=== PATIENT | female | born 1940 | race Caucasian/White ===

== ENCOUNTER → 2019-12-01 09:36 | Outpatient (CLI) | payer MEDICARE, OTHER, SELFPAY ==
--- NOTE | ~2019-12-01 | DEXA_ITS ---
Bone Density Report Name: Natasha Salazar Age: 79 Sex: Female Ethnicity: White Date of : 1940 Indication: osteopenia; height loss; postmenopausal Referring Provider: Rocio Mcrae Study: Bone densitometry was performed. Exam Date: December 01, 2019 Accession number: [id number] Bone Density: Region BMD T-score Z-score Classification AP Spine (L1-L4) 1.019 -0.3 2.4 Normal Femoral Neck (Right) 0.630 -2.0 0.3 Osteopenia Total Hip (Right) 0.742 -1.6 0.4 Osteopenia World Health Organization criteria for BMD impression classify patients as: Normal (T-score at or above -1.0), Osteopenia (T-score between -1.0 and -2.5), or Osteoporosis (T-score at or below -2.5). 10-year Fracture Risk(1): Major Osteoporotic Fracture 15% Hip Fracture 4.3% Reported Risk Factors: [place] (), Neck BMD=0.630, BMI=25.2 (1) FRAX(R) Version 3.08. Fracture probability calculated for an untreated patient. Fracture probability may be lower if the patient has received treatment. Previous Exams: Region Exam Age BMD T-score BMD Change BMD Change Date g/cm2 vs Baseline vs Previous AP Spine(L1-L4) 12/01/2019 79 1.019 -0.3 0.021 -0.033* 11/27/2017 77 1.052 0.0 0.053* 0.053* 06/13/2015 74 0.999 -0.4 Total Hip(Right) 12/01/2019 79 0.742 -1.6 -0.033* -0.021 11/27/2017 77 0.763 -1.5 -0.012 -0.012 06/13/2015 74 0.774 -1.4 *Denotes significance at 95% confidence level, LSC for AP Spine = 0.022 g/cm2, LSC for Total Hip = 0.027 g/cm2 Clinical Information Provided by Patient: Patient maximum height was 65.5 Menopause Age: 55 No regular weight bearing exercise Does not regularly consume dairy products Drinks caffeinated beverages Onset of menses at age 13 Number of children 2 Impression: The patient has low bone mass, based on the Right Femoral Neck T-score. The patient has an estimated ten-year risk of hip fracture of 4.3% and an estimated ten-year risk of major fracture of 15%, based on the WHO FRAX algorithm. The BMD for the AP Spine(L1-L4) decreased, changing by -0.033 since the last DXA exam. Discussion: BONE DENSITY IS LOW AT ONE OR MORE SKELETAL SITES. THE PATIENT'S BMD AND CLINICAL RISK FACTORS CONTRIBUTE TO THIS PATIENT'S INCREASED RISK OF FRACTURE. This patient's lowest T-score is low at one or more skeletal sites. It meets the World Health Organization's (WHO) criteria for ?low bone mass? (T-score between -1.0 and -2.5). The patient's 10-year risk
== END ==
PROVIDERS: PCP Family Medicine; Visit Provider Nurse Practitioner
DX: Z78.0 Asymptomatic menopausal state (principal); M85.851 Other specified disorders of bone density and structure, right thigh
CPT/HCPCS: 77080

== ENCOUNTER 2020-08-12 09:05 | Outpatient (CLI) | payer MEDICARE, OTHER, SELFPAY ==
--- NOTE | ~2020-08-12 | CT_ITS ---
EXAMINATION: CT soft tissue neck w con EXAM DATE: 08/12/2020 09:56 INDICATION: R22.0 - Localized swelling, mass and lump, head . TECHNIQUE: Spiral CT of the neck was performed following intravenous injection of 75 mL Omnipaque 350 . Axial, coronal and sagittal images were reviewed. The dose-length product (DLP) for this examinat ion was 326.94 mGy-cm. The exposure was tailored according to patient size (auto mA exposure control ), and iterative reconstruction (ASIR) was used as additional dose reduction technique. There is no prior study for comparison. FINDINGS: There is a right submandibular mass measuring 4.2 x 4.7 x 3.7 cm, contiguous with the subma ndibular gland. Differential diagnosis includes malignant lymphadenopathy and primary submandibular m alignancy. There is a left submandibular lymph node measuring 7 x 11 mm, within normal size limits. T he parotid glands are unremarkable. Supraclavicular region unremarkable. The thyroid gland is unrema rkable. The superior mediastinum is unremarkable. The airway is unremarkable. Parapharyngeal an d pre-glottic fat planes are preserved. The opacified vasculature is patent. The orbits are unrem arkable. Visualized sinuses and mastoid air cells are well aerated. Upper lobe scarring and emphy sema. Advanced cervical spondylosis. IMPRESSION: Right submandibular mass, likely either malignant lymphadenopathy or submandibular gland lesion. ENT consult for histologic correlation. Reviewed, dictated and finalized at location B. INVESTIGATOR IMPRESSION: Right submandibular mass, likely either malignant lymphadenopathy o r submandibular gland lesion. ENT consult for histologic correlation.
[2020-08-12 09:42] LABS: Estimated Glomerular Filt Rate 60
== END 2020-08-12 09:06 | disposition home or self-care (01) ==
LOC: ANHIMG 09:09
PROVIDERS: PCP Family Medicine; Visit Provider Nurse Practitioner Family
DX: R22.0 Localized swelling, mass and lump, head (principal)
CPT/HCPCS: 70491; Q9967

== ENCOUNTER 2020-09-21 13:02 | Outpatient (CLI) | payer MEDICARE, OTHER, SELFPAY ==
--- NOTE | ~2020-09-21 | US_ITS ---
EXAMINATION: US biopsy st neck thorax DATE: 09/21/2020 14:45 INDICATION: Right submandibular mass. TECHNIQUE: The procedure including the risks, benefits, and alternatives was discussed with the patie nt. Risks discussed included bleeding and infection. The patient understood the risks and agreed to p roceed. The skin overlying the right submandibular region was prepped and draped in usual sterile fas hion. Anesthetic was administered with 1% lidocaine subcutaneously. An 18 gauge core biopsy needle was then used to obtain 6 core biopsy specimens under continuous sonographic guidance. The entry site was cleaned and dressed. There were no immediate complications. FINDINGS: Ultrasound images demonstrate the needle in a 5.0 cm hypoechoic right submandibular mass. IMPRESSION: 1. Ultrasound-guided core needle biopsy of a right submandibular mass. Reviewed, dictated and finalized at location A. TAL ASSOCIATE
== END 2020-09-21 13:03 | disposition home or self-care (01) ==
PROVIDERS: PCP Family Medicine; Visit Provider Otolaryngology
DX: R22.0 Localized swelling, mass and lump, head (principal)
CPT/HCPCS: 20206; 76942; 88184; 88185; 88305; 88313; 88342

== ENCOUNTER 2023-04-29 13:45 | Inpatient (IN) | payer MEDICARE, OTHER, SELFPAY ==
[2023-04-29] VITALS (8 sets, daily range): BP systolic 122–157; BP diastolic 69–86; PULSE 80–94; RESP 13–18; TEMP 36.5–36.9; O2SAT 93–100; BMI 19.8
--- NOTE | ~2023-04-29 | XR_ITS ---
EXAMINATION: XR chest 1V portable DATE: 04/29/2023 15:32 INDICATION: Smoker. Preop. TECHNIQUE: A single frontal view of the chest was obtained. COMPARISON: None. FINDINGS: There is a diffuse interstitial pattern in the lungs. No pleural effusion or pneumothorax. The heart size is normal. There are surgical clips in the neck. IMPRESSION: 1. Interstitial pattern in the lungs, consistent with mild pulmonary edema versus chronic lung diseas e. Reviewed, dictated and finalized at location A. IMPRESSION: 1. Interstitial pattern in the lungs, consistent with mild pulmonary edema vers us chronic lung disease.
--- NOTE | ~2023-04-29 | XR_ITS ---
EXAMINATION: XR hip BI 2V w AP pelvis DATE: 04/29/2023 14:50 INDICATION: Right pelvic pain. Fall. TECHNIQUE: An anteroposterior view of the pelvis and 2 views of each hip were obtained. COMPARISON: Pelvis and right hip radiographs 03/30/2020 FINDINGS: There is an intertrochanteric fracture of proximal right femur. The main distal fracture fr agment demonstrates near-anatomic alignment. There is a total left hip arthroplasty in near-anatomic alignment. No periprosthetic lucency to suggest loosening or infection. There is mild right hip osteo arthritis. There are surgical clips in left thigh. IMPRESSION: 1. Intertrochanteric fracture of proximal right femur. 2. Mild right hip osteoarthritis. 3. Total left hip arthroplasty in near-anatomic alignment. Reviewed, dictated and finalized at location A.
--- NOTE | ~2023-04-29 | XR_ITS ---
EXAMINATION: XR surgery orthopedic DATE: 05/01/2023 14:22 INDICATION: Intertrochanteric nailing of a right hip fracture TECHNIQUE: 6 fluoroscopic images of the right hip and proximal femur were obtained during procedure p erformed by Dr. Acosta. Radiologist was not present for the imaging or procedure. The amount of fluo roscopy time used during this procedure was 6.5 minutes. COMPARISON: 04/29/2022 FINDINGS: Again seen is an intratrochanteric fracture of the proximal right femur. Images demonstrate internal fixation with an antegrade intramedullary flo, femoral neck dynamic compression screw and d istal interlocking screw fixation. There is approximately 1 cm proximal migration of the femoral diap hysis relative to the proximal femoral head and neck fragment. Right femoral head remains normally lo cated within the right acetabulum with mild right hip osteoarthritis. IMPRESSION: 1. Fluoroscopy utilized during internal fixation of a comminuted intratrochanteric fracture of the pr oximal right femur. See procedure note for further detail. Reviewed, dictated and finalized at location A. IMPRESSION: 1. Fluoroscopy utilized during internal fixation of a comminuted intratrochante mary kay fracture of the proximal right femur. See procedure note for further detail .
--- NOTE | 2023-04-29 15:05 | ECG_ITS ---
Measurements Intervals [place] Rate: 88 P: 28 TN: 152 QRS: -14 QRSD: 86 T: 37 QT: 349 QTc: 424 Interpretive Statements SINUS RHYTHM ATRIAL COUPLET VOLTAGE CRITERIA FOR LVH NONSPECIFIC T-WAVE ABNORMALITY- INF/LAT LEADS BASELINE ARTIFACT- I, II, III, AVR, AVL, AVF, V4-V6 BORDERLINE ECG NO PREVIOUS ECG AVAILABLE FOR COMPARISON Electronically Signed On 04-29-2023 16:42:38 CDT by John Wu D.O.
--- NOTE | 2023-04-29 15:10 | ED.LOWEXIN ---
HPI - Extremity Injury (Lower) General Chief Complaint: Extremity Injury, Lower Stated Complaint: RIGHT HIP PAIN Time Seen by Provider: 04/29/23 14:55 History of Present Illness HPI Narrative: Pt fell in parking lot and landed on her right hip. Pt complains of right hip pain with movement. Pt denies neck pain or SINGH. Pt did not lose consciousness. Pt has history of dementia. Related Data Home Medications Medication Instructions Recorded Confirmed multivitamin 1 tablet PO DAILY 08/31/19 03/15/23 Allergies Allergy/AdvReac Type Severity Reaction Status Date / Time No Known Allergies Allergy Verified 03/15/23 10:58 Review of Systems Review of Systems: ROS unobtainable: Yes unobtainable due to mental status PMFSH Past Medical History Medical History (Updated 04/29/23 @ 18:22 by Cristian Barkley III, DO) Aftercare following right shoulder joint replacement surgery Carcinoma of right submandibular gland (~2020) Dementia Hypothyroid Memory loss Osteopenia Vitamin D deficiency Wears hearing aid in both ears Surgical History Surgical History History of left hip replacement Dr. Nichols 2015 Social History Social History (Updated 03/15/23 @ 11:02 by Shayy Barroso MA) Social History: Tim Barajas (patient's son) is POA. 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 Gender identity (if verbalized by the patient): Female Exam Const: General: healthy appearing Nutritional Appearance: thin Orientation/consciousness: patient oriented x3 Limitations: altered mental status HENMT: Head: normal to inspection Eyes: Pupils: Equal, round and reactive pupils present EOM: EOMs intact bilaterally Neck: Neck: normal visual inspection Resp: Effort & Inspection: normal respiratory effort Auscultation: clear to auscultation bilaterally Cardio: Rate: regular rate Rhythm: regular rhythm GI: GI Palp: Yes Soft to palpation Auscultation: normal bowel sounds Skin: General skin exam: normal color Rashes: no rashes Neuro: General: patient oriented x3, moves all extremities, no meningeal signs and no focal motor deficits Cranial nerves: Yes Nystagmus not present Speech: Abnormal speech present slurred (baseline) Extrem: Other: RLE shortened and externally rotated Psych: Mental Status: mental status grossly normal Attitude: cooperative Course Vital Signs Vital signs: Vital Signs Temperature 98.4 F 04/29/23 14:22 Pulse Rate 80 04/29/23 14:22 Respiratory Rate 16 04/29/23 14:22 Blood Pressure 125/69 04/29/23 14:22 Pulse Oximetry 97 04/29/23 14:22 Oxygen Delivery Room Air 04/29/23 14:22 Temperature 98.4 F 04/29/23 14:22 Pulse Rate 92 04/29/23 17:24 Respiratory Rate 16 04/29/23 17:24 Blood Pressure 142/86 H 04/29/23 17:24 Pulse Oximetry 100 04/29/23 17:24 Oxygen Delivery Room Air 04/29/23 14:22 MDM - Extremity Injury (Lower) MDM Narrative Medical decision making narrative: Pt fell and landed on right hip appears to be fracture with shortening and external rotation. IT fx noted on x ray. kimberlee get pre op labs. d/w dr serrano agrees to consult, admit to . discussed with Bushra Gonzales agrees to admit Lab Data 04/29/23 15:24 04/29/23 15:24 Labs: Lab Resu
[2023-04-29 15:29] LABS: Hematocrit 34.9 % (37.0-47.0); Hemoglobin 10.7 g/dL (12.0-15.0); Mean Corpuscular HGB Conc 30.7 g/dl (32-36); Mean Corpuscular Hemoglobin 24.3 pg (26-34); Mean Corpuscular Volume 79.1 fl (80-100); Mean Platelet Volume 9.2 fl (7.4-10.4); Platelet Count Result 298 k/mm3 (150-375); Red Blood Count 4.41 M/mm3 (4.2-5.4); Red Cell Distribution Width 16.1 % (11.5-14.5); White Blood Count 19.6 K/mm3 (4.5-10.0)
[2023-04-29 15:38] LABS: Alanine Aminotransferase 26 U/L (6-35); Alkaline Phosphatase 143 U/L (38-126); Anion Gap 6 mmol/L (8-16); Aspartate Amino Transferase 36 U/L (14-36); Bilirubin,Total 0.3 mg/dL (0.2-1.3); Blood Urea Nitrogen 20 mg/dL (7-17); Calcium 9.1 mg/dL (8.4-10.2); Carbon Dioxide 30 mmol/L (22-30); Chloride 97 mmol/L (98-107); Estimated CRCL calculation 38 ml/min; Estimated Glomerular Filt Rate > 60; Glucose 104 mg/dL (65-110); Sodium 133 mmol/L (137-145)
[2023-04-29 15:40] LABS: INR 1.1; Prothrombin Time 14.6 Seconds (11.1-14.7)
[2023-04-29 15:41] LABS: Partial Thromboplastin Time 33.7 SECONDS (22.3-36.8)
[2023-04-29 15:46] LABS: Band Neutrophils Percent 2 % (0-6); Eosinophils Absolute Manual 0.19 K/mm3 (0.02-0.5); Eosinophils Percent Manual 1 % (0-4); Lymphocytes Absolute Manual 0.98 K/mm3 (1.1-4.5); Monocytes Absolute Manual 0.78 K/mm3 (0.1-0.90); Monocytes Percent Manual 4 % (3-9); Neutrophils Absolute Manual 17.64 K/mm3 (1.7-7.2); Neutrophils Percent Manual 88 % (46-73); Total Cells Counted 100
[2023-04-29 15:47] LABS: Anisocytosis 2+ (NORMAL); Hypochromasia 1+ (NORMAL); Platelet Estimate Adequate (Adequate); Schistocytes None Seen (NORMAL)
[2023-04-29] MEDS: MORPHINE SULFATE (*CRX) 2 MG/ML INJ IV PUSH (15:52)
--- NOTE | 2023-04-29 17:29 | PC.NURSE ---
with pt hx of dementia, they refuse to keep SpO2 monitor and bp cuff on. pt denies any pain.
[2023-04-29] MEDS: MORPHINE SULFATE (*CRX) 4 MG/ML INJ 2 MG IV PUSH (19:31)
--- NOTE | 2023-04-29 19:39 | PM.IMHP ---
H&P: HPI History of Present Illness Date/Time: 04/29/23 19:39 Chief Complaint: Fall Narrative: This is an 82-year-old female patient who ambulates on her own. She does have a history of Alzheimer's and lives home alone. Her son and [id number] live a couple doors down and typically take care of her. The daughter in-law was taking her to have her nails done today. The patient fell in the parking lot after getting her nails done. The patient was complaining of right hip pain. She denies hitting her head or having any head or neck pain. Her white count is 19.6. H&H is 10.7 and 34.9. Her sodium slightly low 133. Chloride 97. Chest x-ray was read as interstitial pattern in the lungs consistent with mild pulmonary edema versus chronic lung disease. Hip and pelvis x-ray was read as follows . Intertrochanteric fracture of proximal right femur. 2. Mild right hip osteoarthritis. 3. Total left hip arthroplasty in near-anatomic alignment. The patient was given morphine in the emergency room. Ortho has been consulted. The patient is being admitted to inpatient status on the date of service of 04/29/2023. Review of Systems Review of Systems: All systems reviewed & are unremarkable except as noted in HPI and below Constitutional: Constitutional: Reports as per HPI and Reports no additional constitutional complaints Eyes: Eyes: Reports as per HPI and Reports no additional eye complaints ENT: Reports system reviewed and no additional complaints, except as documented and Reports Normal hearing present Cardiovascular: Cardiovascular: Reports no additional cardiovascular complaints Respiratory: Respiratory: Reports no additional respiratory complaints and Reports no additional respiratory complaints Gastrointestinal: Gastrointestinal: Reports as per HPI and Reports no additional gastrointestinal complaints Musculoskeletal: Musculoskeletal: Reports no additional musculoskeletal complaints Integumentary/Breasts: Skin/Breast: Reports system reviewed and no additional complaints, except as docu and Reports as per HPI Neurologic: Reports system reviewed and no additional complaints, except as documented, Reports as per HPI and Reports Normal hearing present Psychiatric: Psychiatric: Reports no additional psychiatric complaints and Reports as per HPI Endocrine: Endocrine: Reports no additional endocrine complaints Hematologic/Lymphatic: Hematologic/Lymphatic: Reports no additional hematologic/lymphatic complaints Allergic/Immunologic: Allergic/Immunologic: Reports no additional allergic/immunologic complaints PMFSH Past Medical History Medical History Aftercare following right shoulder joint replacement surgery Carcinoma of right submandibular gland (~2020) Dementia Hypothyroid Memory loss Osteopenia Vitamin D deficiency Wears hearing aid in both ears Surgical History Surgical History H/O shoulder surgery History of left hip replacement Dr. Nichols 2016 History of mandibular surgery Family History Family History (Updated 04/29/23 @ 19:43 by Bushra Davis NP) Mother Dementia Social History Social History (Updated 04/29/23 @ 23:05 by Bushra Davis NP) Social History: Tim Barajas (patient's son) is POA. She lives alone but lives very close to Tim Barajas. She solis has 2 sons. She is a former smoker. Code status full code Smoking packs per day: 1 Smoking cigarettes per day: 20.0 Years smoked: 40 Smoking pack-years: 40.00 Smoking status: Former smoker Tobacco type: cigarettes Second hand tobacco smoke exposure: No Smoking end date: 09/30/07 Alcohol intake: former Substance use: never Substance use type: does not use Lack of Transportation: No Lack of Food: Never True Current Housing: I Have Housing Concerned About Future Housing: No Difficulty Paying Gas/Electric Bills
--- NOTE | 2023-04-29 21:20 | ADMGEN ---
This patient, Natasha Salazar, was admitted to 2 Medical Room 260-. Patient/family oriented to hospital policies and general routines including ID bracelet, bed and alarms, visiting hours, pain management, procedures, bathroom and other care routines, personal items, smoking policy, room service/diet, and visiting hours. Information on how to activate the Rapid Response Team has been discussed. Patient/Family are encouraged to report perceived risks to care and to ask questions if they do not understand what they are told or what they should do.
[2023-04-29] MEDS: SODIUM CHLORIDE 0.9% IV 1,000 ML 100 ML IV CONT (23:33)
[2023-04-30 00:58] LABS: Appearance Urine Clear (Clear); Bacteria Urine None Seen /hpf; Bilirubin Urine Negative (Negative); Color Urine Yellow (Yellow); Glucose Urine UA Negative (Negative); Ketones Urine Negative (Negative); Leukocyte Esterase Ur Trace LEU/UL (NEGATIVE); Nitrate Urine Negative (Negative); Non Pathogenic Casts 0-2; Protein Urine Negative (Negative); Specific Grav Ur 1.014 (1.001-1.035); Squamous Epithelial Cell Urine None seen /hpf (Few); Urobilinogen Urine 0.2 mg/dL (<2.0)
[2023-04-30 01:39] LABS: Add Urine Microscopic? YES
[2023-04-30] MEDS: MORPHINE SULFATE (*CRX) 4 MG/ML INJ 2 MG IV PUSH ×3 (04:57→19:13)
[2023-04-30 05:01] VITALS: BP 142/66; PULSE 85; RESP 18; TEMP 36.4; O2SAT 93
[2023-04-30 05:35] LABS: Basophils Absolute Auto 0.1 K/mm3 (0.0-0.1); Basophils Percent Auto 0.5 % (0.2-1.2); Eosinophils Absolute Auto 0.2 K/mm3 (0-0.3); Hematocrit 34.2 % (37.0-47.0); Hemoglobin 10.4 g/dL (12.0-15.0); Immature Granulocyte Absolute 0.09 K/mm3 (0.00-0.031); Immature Granulocyte Percent A 0.6 % (0-0.5); Lymphocytes Absolute Auto 0.71 K/mm3 (0.9-3.2); Lymphocytes Percent Auto 4.9 % (18.3-44.2); Mean Corpuscular HGB Conc 30.4 g/dl (32-36); Mean Platelet Volume 9.6 fl (7.4-10.4); Monocytes Absolute Auto 0.9 K/mm3 (0.1-0.6); Monocytes Percent Auto 6.4 % (2.6-8.5); Neutrophils Absolute Auto 12.5 K/mm3 (1.3-6.7); Neutrophils Percent Auto 86.6 % (45.5-73.1); Platelet Count Result 275 k/mm3 (150-375); Red Blood Count 4.33 M/mm3 (4.2-5.4); Red Cell Distribution Width 15.9 % (11.5-14.5); White Blood Count 14.5 K/mm3 (4.5-10.0)
[2023-04-30 05:44] LABS: Alanine Aminotransferase 24 U/L (6-35); Albumin Level 3.4 g/dL (3.5-5.1); Alkaline Phosphatase 122 U/L (38-126); Anion Gap 4 mmol/L (8-16); Aspartate Amino Transferase 33 U/L (14-36); Bilirubin,Total 0.5 mg/dL (0.2-1.3); Blood Urea Nitrogen 15 mg/dL (7-17); Calcium 8.6 mg/dL (8.4-10.2); Carbon Dioxide 28 mmol/L (22-30); Chloride 101 mmol/L (98-107); Estimated CRCL calculation 38 ml/min; Estimated Glomerular Filt Rate > 60; Glucose 117 mg/dL (65-110); Potassium 4.3 mmol/L (3.4-5.0); Sodium 133 mmol/L (137-145)
[2023-04-30 07:26] LABS: Free T4 Free Thyroxine Reflex 1.07 ng/dL (0.78-2.19)
[2023-04-30 08:15] LABS: Total Triiodothyronine (T3) 0.79 NG/ML (0.97-1.69)
[2023-04-30 08:37] VITALS: RESP 18; O2SAT 93
[2023-04-30] MEDS: DONEPEZIL HCL 5 MG TABLET PO (08:37)
--- NOTE | 2023-04-30 08:51 | PM.IMPN ---
Progress Note: A&P Assessment and Plan (1) Closed hip fracture: Qualifiers: Encounter type: initial encounter Laterality: right Qualified Code(s): S72.001A - Fracture of unspecified part of neck of right femur, initial encounter for closed fracture Code(s): S72.009A - Fracture of unspecified part of neck of unspecified femur, initial encounter for closed fracture Status: Acute Assessment and Plan: Appreciate orthopedic consultation, NPO, await possible OR IVF, pain control Consult PT/OT postoperatively, IS to bedside (2) Dementia: Code(s): F03.90 - Unspecified dementia, unspecified severity, without behavioral disturbance, psychotic disturbance, mood disturbance, and anxiety Status: Acute Assessment and Plan: Continue with donepezil (3) Hypothyroid: Code(s): E03.9 - Hypothyroidism, unspecified Status: Chronic Assessment and Plan: Check TSH Plan DVT prophylaxis with SCDs GI prophylaxis not indicated Code status full code Subjective Date/time seen: 04/30/23 08:51 Interval history: 82-year-old female with history of dementia is presenting with hip pain and found to have a hip fracture. No overnight events noted. No chest pain or shortness of breath. No nausea, vomiting or diarrhea. No fevers or chills. Pain controlled. Spoke with daughter in law at bedside. All questions answered. Review of Systems Review of Systems: 12 point review of systems was assessed and was negative except as noted in the HPI Exam Narrative: General: No acute distress, alert and oriented per baseline HEENT: Atraumatic, normocephalic, mucous membranes moist CV: Regular rate and rhythm, S1, S2 Lungs: Clear to auscultation bilaterally, no rales or crackles noted, no wheezes, good air entry Abdomen: Soft, nontender, nondistended Extremities: Normal to inspection Skin: No rashes noted, no lesions or wounds seen Psych: Euthymic, normal affect Objective Data Vital Signs Vital Signs: Vital Signs - 24 hr 04/29/23 14:22 04/29/23 15:38 04/29/23 15:46 Temperature 98.4 F Pulse Rate 80 Respiratory Rate 16 Blood Pressure 125/69 122/82 Pulse Oximetry 97 98 97 Oxygen Delivery Room Air 04/29/23 16:00 04/29/23 17:24 04/29/23 16:15 Temperature Pulse Rate 84 92 88 Respiratory Rate 13 16 13 Blood Pressure 142/86 H Pulse Oximetry 96 100 96 Oxygen Delivery 04/29/23 16:31 04/29/23 20:39 04/29/23 21:00 Temperature 97.7 F Pulse Rate 94 86 Respiratory Rate 14 18 Blood Pressure 157/75 H Pulse Oximetry 96 93 Oxygen Delivery Room Air 04/30/23 05:01 Temperature 97.6 F Pulse Rate 85 Respiratory Rate 18 Blood Pressure 142/66 H Pulse Oximetry 93 Oxygen Delivery Intake/Output Intake/Output: Intake & Output 04/27/23 04/28/23 04/29/23 04/30/23 23:59 23:59 23:59 23:59 Intake Total 0 Output Total 900 Balance -900 Meds/Results Medications: Active Medications Generic Name Dose Route Start Last Admin Trade Name Freq PRN Reason Stop Dose Admin Donepezil HCl 5 mg 04/30/23 09:00 04/30/23 08:37 Donepezil Hcl 5 Mg Tablet PO 5 mg DAILY [place] Administration Sodium Chloride 1,000 mls @ 100 mls/hr 04/29/23 23:15 04/29/23 23:33 Normal Saline Iv IV CONT 100 mls/hr .Q10H [place] Administration Lorazepam 0.5 mg 04/29/23 19:49 Lorazepam Inj (*Crx) 2 Mg/Ml Vial IV PUSH Q6H PRN Anxiety Morphine Sulfate 2 mg 04/29/23 16:28 04/30/23 04:57 Morphine Sulfate (*Crx) 4 Mg/Ml Inj IV PUSH 2 mg Q4H PRN Administration Pain Rated 7-10 Multivitamins Therapeutic 1 tablet 04/30/23 09:00 04/30/23 08:35 Multivitamins Therapeutic Tab (*Bkc) PO Not Given DAILY [facility] Vitamin D 2,000 units 04/30/23 09:00 04/30/23 08:35 Cholecalciferol 1,000 Units Tablet PO Not Given DAILY [facility] Radiology Results: ITS Impressions Hip/Pelvis X-Ray 04/01
[2023-04-30 09:17] VITALS: O2SAT 93
[2023-04-30] MEDS: SODIUM CHLORIDE 0.9% IV 1,000 ML 100 ML IV CONT ×2 (09:20→22:57)
[2023-04-30 13:54] VITALS: BP 173/83; PULSE 113; RESP 18; TEMP 36.8; O2SAT 97
--- NOTE | 2023-04-30 15:10 | PM.CNOR ---
Assessment and Plan Assessment and plan (1) Closed hip fracture: Qualifiers: Encounter type: initial encounter Laterality: right Qualified Code(s): S72.001A - Fracture of unspecified part of neck of right femur, initial encounter for closed fracture Code(s): S72.009A - Fracture of unspecified part of neck of unspecified femur, initial encounter for closed fracture Status: Acute (2) Intertrochanteric fracture of right femur: Code(s): S72.141A - Displaced intertrochanteric fracture of right femur, initial encounter for closed fracture Status: Acute Assessment and Plan: FARZANEH HAS SUSTAINED A RIGHT INTERTROCHANTERIC HIP FRACTURE AND WILL REQUIRE INSERTION OF FEMORAL ISAAC WITH LAG SCREW. WE DISCUSSED THE PROCEDURE. SHE SEEMS TO UNDERSTAND THAT SHE NEEDS SURGERY AND SHE IS AWARE OF THE RISKS AND COMPLICATIONS. HISTORY, EXAM AND RADIOGRAPHS REVIEWED WITH THE PATIENT. REFERRING PHYSICIAN RECORDS AND IMAGES REVIEWED. CONDITION, NATURE, ETIOLOGY AND COURSE OF NATURAL HISTORY REVIEWED. CONSERVATIVE AND OPERATIVE TREATMENT OPTIONS REVIEWED WELL THE RISKS AND BENEFITS OF EACH. RECOMMEND INSERTION OF PROXIMAL FEMORAL HIP NAIL DISCUSSED NONOPERATIVE AND OPERATIVE TREATMENT OPTIONS WITH THE PATIENT. THE PATIENT'S QUESTIONS WERE ANSWERED. THE PATIENT DESIRES OPERATIVE TREATMENT. DISCUSSED ___INSERTION OF PROXIMAL FEMORAL ISAAC RIGHT HIP . RISKS OF SURGERY INCLUDING BUT NOT LIMITED TO NEUROVASCULAR DAMAGE, WOUND COMPLICATIONS, BLOOD CLOT, PULMONARY EMBOLUS, STROKE, MT, ANESTHETIC RISKS UP TO AND INCLUDING WERE REVIEWED. CONTINUED PAIN AND POSSIBLE DYSFUNCTION WERE EXPLAINED. NO GUARANTEES WERE OFFERED. THE PATIENT UNDERSTANDS AND WISHES TO PROCEED. History of Present Illness HPI Consult date: 04/30/23 Chief complaint: Right Hip Fx Narrative: FARZANEH WAS ADMITTED TO [facility] AFTER FALLING AND SUSTAINING AN INJURY TO THE RIGHT HIP. SHE WAS EVALUATED IN THE ED AND FOUND TO HAVE A RIGHT INTERTROCHANTERIC HIP FRACTURE. SHE WAS ADMITTED TO THE MEDICINE SERVICE FOR PREOPERATIVE CLEARANCE. SHE HAS DEMENTIA AND IS OX1. SHE C/O OF RIGHT HIP PAIN. SHE DENIES ANY OTHER EXTREMITY OR NECK OR BACK PAIN PMFSH Past Medical History Medical History Aftercare following right shoulder joint replacement surgery Carcinoma of right submandibular gland (~2020) Dementia Hypothyroid Memory loss Osteopenia Vitamin D deficiency Wears hearing aid in both ears Surgical History Surgical History H/O shoulder surgery History of left hip replacement Dr. Nichols 2016 History of mandibular surgery Family History Family History Mother Dementia Social History Social History Social History: Tim Barajas (patient's son) is POA. She lives alone but lives very close to Tim Barajas. She solis has 2 sons. She is a former smoker. Code status full code Smoking packs per day: 1 Smoking cigarettes per day: 20.0 Years smoked: 40 Smoking pack-years: 40.00 Smoking status: Former smoker Tobacco type: cigarettes Second hand tobacco smoke exposure: No Smoking end date: 09/30/07 Alcohol intake: former Substance use: never Substance use type: does not use Lack of Transportation: No Lack of Food: Never True Current Housing: I Have Housing Concerned About Future Housing: No Difficulty Paying Gas/Electric Bills: No Difficulty Paying for Meds: No Currently Unemployed: No Education: Master's Degree or Higher Difficulty w/ Childcare or Family Care: No Living arrangements: alone Occupation/Education: retired Additional occupation/education comments: 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
[2023-04-30 19:52] VITALS: BP 149/72; PULSE 111; RESP 18; TEMP 36.9; O2SAT 93
[2023-04-30] MEDS: LORazepam INJ (*CRX) 2 MG/ML VIAL 0.5 MG IV PUSH (20:08)
[2023-04-30 21:33] VITALS: O2SAT 93
[2023-05-01] VITALS (17 sets, daily range): BP systolic 123–159; BP diastolic 52–102; PULSE 76–109; RESP 12–18; TEMP 36–37; O2SAT 92–100
[2023-05-01] MEDS: MORPHINE SULFATE (*CRX) 4 MG/ML INJ 2 MG IV PUSH (03:53)
[2023-05-01 05:39] LABS: Basophils Percent Auto 0.2 % (0.2-1.2); Eosinophils Absolute Auto 0.1 K/mm3 (0-0.3); Eosinophils Percent Auto 0.4 % (0-4.4); Hematocrit 32.6 % (37.0-47.0); Hemoglobin 10.1 g/dL (12.0-15.0); Immature Granulocyte Absolute 0.09 K/mm3 (0.00-0.031); Immature Granulocyte Percent A 0.6 % (0-0.5); Lymphocytes Absolute Auto 0.85 K/mm3 (0.9-3.2); Lymphocytes Percent Auto 5.9 % (18.3-44.2); Mean Corpuscular Hemoglobin 24.3 pg (26-34); Mean Corpuscular Volume 78.6 fl (80-100); Mean Platelet Volume 9.5 fl (7.4-10.4); Monocytes Absolute Auto 1.2 K/mm3 (0.1-0.6); Monocytes Percent Auto 8.1 % (2.6-8.5); Neutrophils Absolute Auto 12.3 K/mm3 (1.3-6.7); Neutrophils Percent Auto 84.8 % (45.5-73.1); Platelet Count Result 266 k/mm3 (150-375); Red Blood Count 4.15 M/mm3 (4.2-5.4); Red Cell Distribution Width 16.1 % (11.5-14.5); White Blood Count 14.5 K/mm3 (4.5-10.0)
[2023-05-01 05:53] LABS: Alanine Aminotransferase 21 U/L (6-35); Alkaline Phosphatase 114 U/L (38-126); Anion Gap 1 mmol/L (8-16); Aspartate Amino Transferase 31 U/L (14-36); Bilirubin,Total 0.4 mg/dL (0.2-1.3); Blood Urea Nitrogen 14 mg/dL (7-17); Carbon Dioxide 25 mmol/L (22-30); Chloride 106 mmol/L (98-107); Estimated CRCL calculation 38 ml/min; Estimated Glomerular Filt Rate > 60; Glucose 106 mg/dL (65-110); Potassium 3.9 mmol/L (3.4-5.0); Sodium 132 mmol/L (137-145)
--- NOTE | 2023-05-01 07:18 | WPDHPUPDATE1 ---
History and Physical Update Update Date/Time: 05/01/23 07:18 History and Physical has been reviewed, including an updated exam of the patient. There are NO changes in the patient's condition. Risks, benefits, and alternatives have been discussed and questions answered. Patient agrees to proceed with procedure.
[2023-05-01] MEDS: CHOLECALCIFEROL 1,000 UNITS TABLET 2000 UNITS PO (09:26)
[2023-05-01] MEDS: MULTIVITAMINS THERAPEUTIC TAB (*BKC) 1 TABLET PO (09:26)
[2023-05-01] MEDS: DONEPEZIL HCL 5 MG TABLET PO (09:26)
--- NOTE | 2023-05-01 11:47 | WPDANESEPPF ---
Anes - Initial Pre Proc Eval Procedure: Operation Date: 05/01/23 13:30 Proposed Procedures p Right Intertrochanteric Nail - Praveen Acosta MD Date/Time: 05/01/23 11:47 Surgeon: Emigdio Harvey MD Pre Op Diagnosis: Right Hip Fx Patient Data Age: 82 Gender: F Height: 1.52 m Weight: 46.6 kg Last Vital Signs Temp 36.6 C 05/01/23 04:50 Pulse 82 05/01/23 04:50 Resp 18 05/01/23 04:50 BP 132/62 05/01/23 04:50 Pulse Ox 96 05/01/23 04:50 O2 Del Method Room Air 05/01/23 08:00 Allergies Allergy/AdvReac Type Severity Reaction Status Date / Time No Known Allergies Allergy Verified 03/15/23 10:58 Home Medications Medication Instructions Recorded Confirmed Type multivitamin 1 tablet PO DAILY 08/31/19 04/29/23 History cholecalciferol (vitamin D3) 50 2,000 unit PO DAILY #90 tabs 10/21/20 04/29/23 Rx mcg (2,000 unit) tablet donepezil 5 mg tablet (Aricept) 5 mg PO DAILY #90 tabs 03/15/23 04/29/23 Rx Laboratory Tests 05/01/23 05:15 WBC 14.5 H K/mm3 (4.5-10.0) RBC 4.15 L M/mm3 (4.2-5.4) Hgb 10.1 L g/dL (12.0-15.0) Hct 32.6 L % (37.0-47.0) MCV 78.6 L fl (80-100) MCH 24.3 L pg (26-34) MCHC 31.0 L g/dl (32-36) RDW 16.1 H % (11.5-14.5) Plt Count 266 k/mm3 (150-375) MPV 9.5 fl (7.4-10.4) Immature Gran % (Auto) 0.6 H % (0-0.5) Neut % (Auto) 84.8 H % (45.5-73.1) Lymph % (Auto) 5.9 L % (18.3-44.2) [place] % (Auto) 8.1 % (2.6-8.5) Eos % (Auto) 0.4 % (0-4.4) Baso % (Auto) 0.2 % (0.2-1.2) Lymph # (Auto) 0.85 L K/mm3 (0.9-3.2) [place] # (Auto) 1.2 H K/mm3 (0.1-0.6) Eos # (Auto) 0.1 K/mm3 (0-0.3) Baso # (Auto) 0.0 K/mm3 (0.0-0.1) Abs Immat Gran (auto) 0.09 H K/mm3 (0.00-0.031) Absolute Neuts (auto) 12.3 H K/mm3 (1.3-6.7) Absolute Nucleated RBC 0.0 K/mm3 (0.0-0.012) Nucleated RBC % 0.0 % (0.0-0.2) Sodium 132 L mmol/L (137-145) Potassium 3.9 mmol/L (3.4-5.0) Chloride 106 mmol/L (98-107) Carbon Dioxide 25 mmol/L (22-30) Anion Gap 1 L mmol/L (8-16) BUN 14 mg/dL (7-17) Creatinine 0.70 mg/dL (0.7-1.0) Estim Creat Clear Calc 38 ml/min Estimated GFR > 60 (59 - ) Glucose 106 mg/dL (65-110) Calcium 8.0 L mg/dL (8.4-10.2) Total Bilirubin 0.4 mg/dL (0.2-1.3) AST 31 U/L (14-36) ALT 21 U/L (6-35) Alkaline Phosphatase 114 U/L (38-126) Total Protein 7.0 g/dL (6.3-8.2) Albumin 3.0 L g/dL (3.5-5.1) Patient hx anesthesia problems: none Family hx anesthesia problems: none Results Review: All pre-operative results and documents have been reviewed as part of the pre-operative evaluation. [facility] Past Medical History Medical History Aftercare following right shoulder joint replacement surgery Carcinoma of right submandibular gland (~2020) Dementia Hypothyroid Memory loss Osteopenia Vitamin D deficiency Wears hearing aid in both ears Surgical History Surgical History H/O shoulder surgery History of left hip replacement Dr. Nichols 2016 History of mandibular surgery Family History Family History Mother Dementia Social History Social History Social History: Tim Barajas (patient's son) is POA. She lives alone but lives very close to Tim Barajas. She solis has 2 sons. She is a former smoker. Code status full code Smoking packs per day: 1 Smoking cigarettes per day: 20.0 Years smoked: 40 Smoking pack-years: 40.00 Smoking status: Former smoker Tobacco type: cigarettes Second hand tobacco smoke exposure: No Smoking end date: 09/30/07 Alcohol intake: former Substance use: never Substance use type: does not use Lack
--- NOTE | 2023-05-01 11:58 | PM.IMPN ---
Progress Note: A&P Assessment and Plan (1) Intertrochanteric fracture of right femur: Code(s): S72.141A - Displaced intertrochanteric fracture of right femur, initial encounter for closed fracture Status: Acute (2) Closed hip fracture: Qualifiers: Encounter type: initial encounter Laterality: right Qualified Code(s): S72.001A - Fracture of unspecified part of neck of right femur, initial encounter for closed fracture Code(s): S72.009A - Fracture of unspecified part of neck of unspecified femur, initial encounter for closed fracture Status: Acute (3) Dementia: Code(s): F03.90 - Unspecified dementia, unspecified severity, without behavioral disturbance, psychotic disturbance, mood disturbance, and anxiety Status: Acute (4) Hypothyroid: Code(s): E03.9 - Hypothyroidism, unspecified Status: Chronic Plan 82-year-old female with history of dementia is presenting with hip pain and found to have a hip fracture. 1)Right Hip Fracture: Appreciate Ortho help Plan for surgical intervention today NPO Pain control 2)Abnormal TSH: High TSH with normal T4 Recheck TSH in 6-8 weeks outpatient 3)H/o Dementia: C/w Donepezil 4)DVT ppx: SCD 5)Code:Full 6)Dispo:pending surgical intervention Time Spent With Patient Time with patient: 25 - 35 minutes Subjective Date/time seen: 05/01/23 11:58 Interval history: no acute events overnight Review of Systems Review of Systems: unable to obtain Exam Narrative: General: No acute distress,sleeping HEENT: Atraumatic, normocephalic, mucous membranes moist CV: Regular rate and rhythm, S1, S2 Lungs: Clear to auscultation bilaterally, no rales or crackles noted, no wheezes, good air entry Abdomen: Soft, nontender, nondistended Extremities: Normal to inspection Skin: No rashes noted, no lesions or wounds seen Psych: unable to obtain Objective Data Vital Signs Vital Signs: Vital Signs - 24 hr 04/30/23 13:54 04/30/23 19:24 04/30/23 19:52 Temperature 98.2 F 98.4 F Pulse Rate 113 H 111 H Respiratory Rate 18 18 Blood Pressure 173/83 H 149/72 H Pulse Oximetry 97 93 Oxygen Delivery Room Air 04/30/23 21:33 05/01/23 04:50 05/01/23 08:00 Temperature 97.9 F Pulse Rate 82 Respiratory Rate 18 Blood Pressure 132/62 Pulse Oximetry 93 96 Oxygen Delivery Room Air Room Air Intake/Output Intake/Output: Intake & Output 04/28/23 04/29/23 04/30/23 05/01/23 23:59 23:59 23:59 23:59 Intake Total 2000 0 Output Total 1550 450 Balance 450 -450 Meds/Results Medications: Active Medications Generic Name Dose Route Start Last Admin Trade Name Freq PRN Reason Stop Dose Admin Acetaminophen 1,000 mg 04/30/23 08:54 Acetaminophen 500 Mg Tablet PO Q6H PRN Mild Pain (1-3) or Fever Donepezil HCl 5 mg 04/30/23 09:00 05/01/23 09:26 Donepezil Hcl 5 Mg Tablet PO 5 mg DAILY [place] Administration Fentanyl Citrate 25 mcg 05/01/23 11:47 Fentanyl Citrate Inj (*Crx) 100 Mcg/2 Ml Vial IV PUSH Q2M PRN Pain Sodium Chloride 1,000 mls @ 100 mls/hr 04/29/23 23:15 04/30/23 22:57 Normal Saline Iv IV CONT 100 mls/hr .Q10H [place] Administration Lactated Ringer's 1,000 mls @ 30 mls/hr 05/01/23 11:50 Lr - Lactated Ringers Iv IV CONT .Q24H [place] Lactated Ringer's 1,000 mls @ 30 mls/hr 05/01/23 11:50 Lr - Lactated Ringers Iv IV CONT .Q24H [place] Lorazepam 0.5 mg 04/29/23 19:49 04/30/23 20:08 Lorazepam Inj (*Crx) 2 Mg/Ml Vial IV PUSH 0.5 mg Q6H PRN Administration Anxiety Morphine Sulfate 2 mg 04/29/23 16:28 05/01/23 03:53 Morphine Sulfate (*Crx) 4 Mg/Ml Inj IV PUSH 2 mg Q4H PRN Administration Pain Rated 7-10 Multivitamins Therapeutic 1 tablet 04/30/23 09:00 05/01/23 09:26 Multivitamins Therapeutic Tab (*Bkc) PO 1 tablet DAILY [place] Administration Oxycodone HCl 5 mg 04/30/23 08:54
[2023-05-01] MEDS: LACTATED RINGERS 1,000 ML 30 ML IV CONT (12:00)
--- NOTE | 2023-05-01 12:12 | SUR.PREOP ---
CHLORHEXIDINE SCRUB SENT TO OR WITH PT.
[2023-05-01] MEDS: ceFAZolin 2 GM/D5W 50 ML 2 GM/50 ML BAG IVPB ×2 (13:15→20:50)
--- NOTE | 2023-05-01 14:35 | W.PM.PROC2 ---
Procedure Note - Detailed Date of Procedure 05/01/23 Pre-op Diagnosis Right Hip Intertrochanteric fracture Post-op Diagnosis Same Procedure Performed INSERTION PROXIMAL FEMORAL RIGHT HIP Surgeon Praveen Acosta MD Anesthesia General Description of Procedure THE PATIENT WAS TAKEN TO THE OPERATING ROOM AND PLACED ON A FRACTURE TABLE AFTER GIVEN GENERAL ANESTHESIA. THE LEFT LOWER EXTREMITY WAS PLACED IN A TRACTION BOOT AND USING SOME TRACTION AND INTERNAL ROTATION THE INNER TROCHANTERIC FRACTURE WAS REDUCED TO ANATOMIC POSITION. NEXT THE LEFT LOWER EXTREMITY WAS PREPPED AND DRAPED IN THE STERILE FASHION. AN INCISION WAS MADE PROXIMAL TO THE TIP OF THE GREATER TROCHANTER AND DISSECTION CONTINUED TILL THE TIP OF THE GREATER TROCHANTER WAS PALPATED. A GUIDE PIN WAS PLACED DOWN THE FEMORAL CANAL AND PAST THE FRACTURE SITE. THIS WAS CHECKED ON FLUOROSCOPY AND FOUND TO BE IN GOOD POSITION. AN INITIAL REAMER WAS USED TO REAM THE FEMORAL CANAL. AN 11 x 200MM GAMMA ISAAC WAS INSERTED TILL THE CORRECT POSITION WAS IDENTIFIED ON XRAY. A GUIDE PIN WAS INSERTED THROUGH THE FEMORAL NECK AT 130 DEG ANGLE TILL IT REACHED THE TIP OF THE SUB CHONDRAL BONE SEEN ON XRAY. AFTER REAMING, LAG SCREW WAS INSERTED MEASURING 90 MM. XRAYS SHOWED IT TO BE IN GOOD POSITION. THE LAG SCREW WAS LOCKED PROXIMALLY WITH A LOCKING SCREW. NEXT A DISTAL LOCKING SCREW WAS PLACED ACROSS THE ISAAC AND WAS IN GOOD POSITION ON XRAY. THE TRACTION WAS RELEASED. THE WOUNDS WERE WASHED. THE DEEP FASCIA WAS REPAIRED WITH 0 VICRYL SUTURE, THE SUB CUTANEOUS LAYER WITH 2-0 VICRYL, AND THE SKIN WITH NIKKI. THE WOUNDS WERE WASHED AND THEN STERILE DRESSING WAS APPLIED. PATIENT WAS EXTUBATED AND SENT TO RECOVERY ROOM. Estimated Blood Loss 75 Urine Output 300 Complications No immediate complications Condition Stable Disposition PACU
[2023-05-01] MEDS: fentaNYL CITRATE INJ (*CRX) 100 MCG/2 ML VIAL 25 MCG IV PUSH ×5 (14:47→15:44)
--- NOTE | 2023-05-01 14:47 | SUR.OPER ---
GREGORY DRAINED FOR 100ML CLEAR YELLOW U/A EBL 75ML
[2023-05-01] MEDS: METOPROLOL TARTRATE INJ 5 MG/5 ML VIAL 2.5 MG IV PUSH (15:04)
--- NOTE | 2023-05-01 15:09 | SUR.PHASEI ---
1500 - MD Pillai notified that pt. had short run of HR 170's. Pt. now back in NSR - HR 90's. BP 151/99. New orders for RN to give 2.5mg metoprolol IVP once.
[2023-05-01] MEDS: SODIUM CHLORIDE 0.9% IV 1,000 ML 125 ML IV CONT (17:07)
[2023-05-01] MEDS: SENNA/DOCUSATE SODIUM TABLET 2 TAB PO (17:10)
[2023-05-01] MEDS: ASPIRIN 325 MG ENTERIC TABLET PO (20:51)
[2023-05-02] MEDS: SODIUM CHLORIDE 0.9% IV 1,000 ML 125 ML IV CONT
[2023-05-02] MEDS: diazePAM (*CRX) 5 MG TABLET PO ×2 (03:48→18:34)
[2023-05-02] MEDS: ceFAZolin 2 GM/D5W 50 ML 2 GM/50 ML BAG IVPB ×2 (05:05→12:28)
[2023-05-02 05:47] LABS: Alanine Aminotransferase 22 U/L (6-35); Albumin Level 2.8 g/dL (3.5-5.1); Alkaline Phosphatase 97 U/L (38-126); Anion Gap 5 mmol/L (8-16); Aspartate Amino Transferase 35 U/L (14-36); Bilirubin,Total 0.3 mg/dL (0.2-1.3); Blood Urea Nitrogen 17 mg/dL (7-17); Calcium 7.7 mg/dL (8.4-10.2); Carbon Dioxide 25 mmol/L (22-30); Chloride 107 mmol/L (98-107); Estimated CRCL calculation 34 ml/min; Estimated Glomerular Filt Rate > 60; Glucose 102 mg/dL (65-110); Potassium 3.7 mmol/L (3.4-5.0); Sodium 137 mmol/L (137-145)
[2023-05-02 05:53] LABS: Basophils Percent Auto 0.3 % (0.2-1.2); Eosinophils Percent Auto 0.1 % (0-4.4); Hematocrit 30.5 % (37.0-47.0); Hemoglobin 9.3 g/dL (12.0-15.0); Immature Granulocyte Percent A 0.7 % (0-0.5); Lymphocytes Absolute Auto 1.16 K/mm3 (0.9-3.2); Lymphocytes Percent Auto 7.7 % (18.3-44.2); Mean Corpuscular HGB Conc 30.5 g/dl (32-36); Mean Corpuscular Hemoglobin 24.4 pg (26-34); Mean Corpuscular Volume 80.1 fl (80-100); Mean Platelet Volume 9.8 fl (7.4-10.4); Monocytes Absolute Auto 1.5 K/mm3 (0.1-0.6); Monocytes Percent Auto 9.9 % (2.6-8.5); Neutrophils Absolute Auto 12.3 K/mm3 (1.3-6.7); Neutrophils Percent Auto 81.3 % (45.5-73.1); Platelet Count Result 283 k/mm3 (150-375); Red Blood Count 3.81 M/mm3 (4.2-5.4); Red Cell Distribution Width 16.7 % (11.5-14.5); White Blood Count 15.1 K/mm3 (4.5-10.0)
[2023-05-02 06:05] VITALS: BP 118/71; PULSE 112; RESP 18; TEMP 36.3; O2SAT 93
[2023-05-02] MEDS: oxyCODONE HCL (*CRX) 5 MG TAB IR PO (06:55)
[2023-05-02] MEDS: CHOLECALCIFEROL 1,000 UNITS TABLET 2000 UNITS PO (08:37)
[2023-05-02] MEDS: SENNA/DOCUSATE SODIUM TABLET 2 TAB PO ×2 (08:38→18:33)
[2023-05-02] MEDS: polyethylene glycoL 3350 17 GM POWD.PACK PO (08:39)
[2023-05-02] MEDS: DONEPEZIL HCL 5 MG TABLET PO (08:39)
[2023-05-02] MEDS: MULTIVITAMINS THERAPEUTIC TAB (*BKC) 1 TABLET PO (08:39)
--- NOTE | 2023-05-02 09:05 | P.PNAN_ITS ---
Anes - Prog Note Post-Op Date/Time: 05/02/23 09:05 Cardiovascular status: normal Respiratory status: normal Airway patency: baseline Mental status: baseline (confused at baseline) Post-Op hydration status: normal Vital Signs: Last Vital Signs Temp 36.3 C L 05/02/23 06:05 Pulse 112 H 05/02/23 06:05 Resp 18 05/02/23 06:05 BP 118/71 05/02/23 06:05 Pulse Ox 93 05/02/23 06:05 O2 Del Method Room Air 05/02/23 07:28 O2 Flow Rate 2 05/01/23 16:10 Pain Score (VAS): 0 I/O: Intake & Output 05/01/23 05/02/23 05/02/23 23:59 07:59 15:59 Intake Total 690 1050 Output Total 225 600 Balance 465 450 Laboratory Tests 05/02/23 05:18 05/02/23 05:18 05/02/23 05:18 WBC 15.1 H RBC 3.81 L Hgb 9.3 L Hct 30.5 L MCV 80.1 MCH 24.4 L MCHC 30.5 L RDW 16.7 H Plt Count 283 MPV 9.8 Immature Gran % (Auto) 0.7 H Neut % (Auto) 81.3 H Lymph % (Auto) 7.7 L [place] % (Auto) 9.9 H Eos % (Auto) 0.1 Baso % (Auto) 0.3 Lymph # (Auto) 1.16 [place] # (Auto) 1.5 H Eos # (Auto) 0.0 Baso # (Auto) 0.0 Abs Immat Gran (auto) 0.10 H Absolute Neuts (auto) 12.3 H Absolute Nucleated RBC 0.0 Nucleated RBC % 0.0 Sodium 137 Potassium 3.7 Chloride 107 Carbon Dioxide 25 Anion Gap 5 L BUN 17 Creatinine 0.80 Estim Creat Clear Calc 34 Estimated GFR > 60 Glucose 102 Calcium 7.7 L Total Bilirubin 0.3 AST 35 ALT 22 Alkaline Phosphatase 97 Total Protein 7.0 Albumin 2.8 L Post-procedural complaints: none Patient Feedback: Patient satisfied with anesthetic care.
--- NOTE | 2023-05-02 09:09 | PM.IMPN ---
Progress Note: A&P Assessment and Plan (1) Closed hip fracture: Qualifiers: Encounter type: initial encounter Laterality: right Qualified Code(s): S72.001A - Fracture of unspecified part of neck of right femur, initial encounter for closed fracture Code(s): S72.009A - Fracture of unspecified part of neck of unspecified femur, initial encounter for closed fracture Status: Acute Assessment and Plan: Appreciate orthopedic consultation, POD#1 ORIF IVF, pain control Consult PT/OT postoperatively, IS to bedside (2) Dementia: Code(s): F03.90 - Unspecified dementia, unspecified severity, without behavioral disturbance, psychotic disturbance, mood disturbance, and anxiety Status: Acute Assessment and Plan: Continue with donepezil (3) Hypothyroid: Code(s): E03.9 - Hypothyroidism, unspecified Status: Chronic Assessment and Plan: Elevated TSH, not on replacement, initiate levothyroxine 25 mcg and recheck in 4-6 weeks outpatient Plan DVT prophylaxis with SCDs GI prophylaxis not indicated Code status full code Subjective Date/time seen: 05/02/23 09:09 Interval history: 82-year-old female with history of dementia is presenting with hip pain and found to have a hip fracture. No overnight events noted. No chest pain or shortness of breath. No nausea, vomiting or diarrhea. No fevers or chills. Pain controlled. Review of Systems Review of Systems: 12 point review of systems was assessed and was negative except as noted in the HPI Exam Narrative: General: No acute distress, alert and oriented per baseline HEENT: Atraumatic, normocephalic, mucous membranes moist CV: Regular rate and rhythm, S1, S2 Lungs: Clear to auscultation bilaterally, no rales or crackles noted, no wheezes, good air entry Abdomen: Soft, nontender, nondistended Extremities: Normal to inspection Skin: No rashes noted, no lesions or wounds seen Psych: Euthymic, normal affect Objective Data Vital Signs Vital Signs: Vital Signs - 24 hr 05/01/23 11:56 05/01/23 15:04 05/01/23 14:38 Temperature 98.6 F 97.3 F L Pulse Rate 86 93 95 Respiratory Rate 18 13 Blood Pressure 128/52 L 143/86 H Pulse Oximetry 100 100 Oxygen Delivery Room Air Simple Face Mask Oxygen Flow Rate 10 05/01/23 14:45 05/01/23 15:00 05/01/23 15:15 Temperature Pulse Rate 102 H 93 80 Respiratory Rate 18 12 14 Blood Pressure 144/87 H 158/89 H 123/82 Pulse Oximetry 100 100 99 Oxygen Delivery Simple Face Mask Simple Face Mask Room Air Oxygen Flow Rate 10 10 05/01/23 15:30 05/01/23 15:45 05/01/23 16:00 Temperature Pulse Rate 83 76 78 Respiratory Rate 14 12 17 Blood Pressure 144/92 H 153/81 H 140/82 Pulse Oximetry 93 98 98 Oxygen Delivery Room Air Nasal Cannula Nasal Cannula Oxygen Flow Rate 2 2 05/01/23 16:10 05/01/23 16:20 05/01/23 16:35 Temperature 96.8 F L 96.8 F L Pulse Rate 82 81 94 Respiratory Rate 14 18 18 Blood Pressure 147/82 H 155/82 H 145/102 H Pulse Oximetry 98 93 92 Oxygen Delivery Nasal Cannula Oxygen Flow Rate 2 05/01/23 17:05 05/01/23 18:05 05/01/23 20:00 Temperature 97.7 F 96.8 F L Pulse Rate 84 86 86 Respiratory Rate 16 16 16 Blood Pressure 139/95 H 159/94 H Pulse Oximetry 98 97 97 Oxygen Delivery Room Air Oxygen Flow Rate 05/01/23 22:05 05/02/23 06:05 05/02/23 07:28 Temperature 97.6 F 97.3 F L Pulse Rate 109 H 112 H Respiratory Rate 16 18 Blood Pressure 123/68 118/71 Pulse Oximetry 92 93 Oxygen Delivery Room Air Oxygen Flow Rate Intake/Output Intake/Output: Intake & Output 04/29/23 04/30/23 05/01/23 05/02/23 23:59 23:59 23:59 23:59 Intake Total 1999 740 1050 Output Total 1550 1275 600 Balance 450 -535 450 Meds/Results Medications: Active Medications Generic Name Dose Route Start Last Admin Trade Name Freq PRN Reason Stop Dose Admin Acetaminophen 1,000 mg 04/30/23
[2023-05-02] MEDS: ASPIRIN 325 MG ENTERIC TABLET PO ×2 (10:12→20:25)
[2023-05-02] MEDS: LEVOTHYROXINE SODIUM 25 MCG TABLET PO (10:12)
[2023-05-02 10:15] VITALS: BP 150/75; PULSE 83; RESP 18; TEMP 36.7; O2SAT 98
[2023-05-02] MEDS: HYDROcodone/acetaminophen (*CRX) 5-325 MG TABLET 2 TAB PO (12:28)
[2023-05-02 14:28] VITALS: BP 124/75; PULSE 91; RESP 16; TEMP 36.7; O2SAT 95
--- NOTE | 2023-05-02 17:19 | PM.PNORT ---
Progress Note: A&P Assessment and Plan (1) Intertrochanteric fracture of right femur: Code(s): S72.141A - Displaced intertrochanteric fracture of right femur, initial encounter for closed fracture Status: Acute Assessment and Plan: 9POD 1 DOING WELL. CONTINUE PT. SNF WHEN STABLE Subjective Subjective Date/Time Seen: 05/02/23 17:19 Interval history: POD 1 DOING WELL. NO CALF PAIN Exam Extrem: Other: VSS AFEBRILE DRESSING DRY [place] INTACT NEG HOMANS SIGN CALF SOFT NON TENDER. Objective Data Vital Signs Vital Signs: Vital Signs - 24 hr 05/01/23 18:05 05/01/23 20:00 05/01/23 22:05 Temperature 36.0 C L 36.4 C Pulse Rate 86 86 109 H Respiratory Rate 16 16 16 Blood Pressure 159/94 H 123/68 Pulse Oximetry 97 97 92 Oxygen Delivery Room Air 05/02/23 06:05 05/02/23 07:28 05/02/23 08:01 Temperature 36.3 C L Pulse Rate 112 H Respiratory Rate 18 Blood Pressure 118/71 Pulse Oximetry 93 Oxygen Delivery Room Air Room Air 05/02/23 10:15 05/02/23 08:00 05/02/23 14:28 Temperature 36.7 C 36.7 C Pulse Rate 83 91 Respiratory Rate 18 16 Blood Pressure 150/75 H 124/75 Pulse Oximetry 98 95 Oxygen Delivery Room Air Intake/Output Intake/Output: Intake & Output 04/29/23 04/30/23 05/01/23 05/02/23 23:59 23:59 23:59 23:59 Intake Total 1999 740 1410 Output Total 550 1275 600 Balance 450 -535 810 Meds/Results Medications: Active Medications Generic Name Dose Route Start Last Admin Trade Name Freq PRN Reason Stop Dose Admin Acetaminophen 1,000 mg 04/30/23 08:54 Acetaminophen 500 Mg Tablet PO Q6H PRN Mild Pain (1-3) or Fever Acetaminophen 650 mg 05/01/23 16:20 Acetaminophen 325 Mg Tablet PO Q6H PRN Mild Pain (1-3) or Fever Hydrocodone Bitart/Acetaminophen 2 tab 05/01/23 16:20 05/02/23 12:28 Hydrocodone/Acetaminophen (*Crx) 5-325 Mg Tablet PO 2 tab Q6H PRN Administration Pain Rated 7-10 Aspirin 325 mg 05/01/23 21:00 05/02/23 10:12 Aspirin 325 Mg Enteric Tablet PO 325 mg Q12HR [place] Administration Diazepam 5 mg 05/01/23 16:20 05/02/23 03:48 Diazepam (*Crx) 5 Mg Tablet PO 5 mg Q8H PRN Administration Muscle Spasm Donepezil HCl 5 mg 04/30/23 09:00 05/02/23 08:39 Donepezil Hcl 5 Mg Tablet PO 5 mg DAILY [place] Administration Sodium Chloride 1,000 mls @ 125 mls/hr 05/01/23 16:20 05/02/23 00:00 Normal Saline Iv IV CONT 125 mls/hr .Q8H [place] Administration Levothyroxine Sodium 25 mcg 05/02/23 09:20 05/02/23 10:12 Levothyroxine Sodium 25 Mcg Tablet PO 25 mcg DAILY@0630 [place] Administration Lorazepam 0.5 mg 04/29/23 19:49 04/30/23 20:08 Lorazepam Inj (*Crx) 2 Mg/Ml Vial IV PUSH 0.5 mg Q6H PRN Administration Anxiety Multivitamins Therapeutic 1 tablet 04/30/23 09:00 05/02/23 08:39 Multivitamins Therapeutic Tab (*Bkc) PO 1 tablet DAILY [place] Administration Naloxone HCl 0.1 mg 05/01/23 16:20 Naloxone Hcl 0.4 Mg/Ml Vial IV PUSH Q2M PRN Opiate Reversal Ondansetron HCl 4 mg 05/01/23 16:20 Ondansetron Inj 4 Mg/2 Ml Vial IV PUSH Q4H PRN Nausea And Vomiting Oxycodone HCl 5 mg 04/30/23 08:54 05/02/23 06:55 Oxycodone Hcl (*Crx) 5 Mg Tab Ir PO 5 mg Q4H PRN Administration Pain Rated 7-10 Polyethylene Glycol 17 gm 05/02/23 09:00 05/02/23 08:39 Polyethylene Glycol 3350 17 Gm Powd.Pack PO 17 gm QAM [place] Administration Senna/Docusate Sodium 2 tab 05/01/23 17:00 05/02/23 08:38 Senna/Docusate Sodium Tablet PO 2 tab BID [place] Administration Vitamin D 2,000 units 04/30/23 09:00 05/02/23 08:37 Cholecalciferol 1,000 Units Tablet PO 2,000 units DAILY [place] Administration Radiology Results: ITS Impressions Hip/Pelvis X-Ray 04/29/23 14:54 IMPRESSION: 1. Intertrochanteric fracture of proximal right femur. 2. Mild right hip osteoarthritis. 3. Total left hip arthroplasty in
--- NOTE | 2023-05-02 18:06 | PC.NURSE ---
Per Dr. Bush, okay to leave IV out
[2023-05-02] MEDS: ACETAMINOPHEN 325 MG TABLET 650 MG PO (18:34)
[2023-05-02 20:39] VITALS: BP 119/74; PULSE 71; RESP 14; TEMP 36.4; O2SAT 98
[2023-05-03] MEDS: LEVOTHYROXINE SODIUM 25 MCG TABLET PO (06:02)
[2023-05-03 06:08] VITALS: BP 118/57; PULSE 80; RESP 16; TEMP 36.4; O2SAT 94
[2023-05-03 07:05] LABS: Basophils Percent Auto 0.3 % (0.2-1.2); Eosinophils Absolute Auto 0.2 K/mm3 (0-0.3); Eosinophils Percent Auto 1.6 % (0-4.4); Hematocrit 26.6 % (37.0-47.0); Hemoglobin 8.3 g/dL (12.0-15.0); Immature Granulocyte Absolute 0.07 K/mm3 (0.00-0.031); Immature Granulocyte Percent A 0.6 % (0-0.5); Lymphocytes Absolute Auto 1.31 K/mm3 (0.9-3.2); Lymphocytes Percent Auto 11.8 % (18.3-44.2); Mean Corpuscular HGB Conc 31.2 g/dl (32-36); Mean Corpuscular Hemoglobin 24.1 pg (26-34); Mean Corpuscular Volume 77.3 fl (80-100); Mean Platelet Volume 9.6 fl (7.4-10.4); Monocytes Percent Auto 8.6 % (2.6-8.5); Neutrophils Absolute Auto 8.6 K/mm3 (1.3-6.7); Neutrophils Percent Auto 77.1 % (45.5-73.1); Platelet Count Result 256 k/mm3 (150-375); Red Blood Count 3.44 M/mm3 (4.2-5.4); Red Cell Distribution Width 16.4 % (11.5-14.5); White Blood Count 11.1 K/mm3 (4.5-10.0)
[2023-05-03 07:34] LABS: Alanine Aminotransferase 17 U/L (6-35); Albumin Level 2.7 g/dL (3.5-5.1); Alkaline Phosphatase 94 U/L (38-126); Anion Gap 2 mmol/L (8-16); Aspartate Amino Transferase 38 U/L (14-36); Bilirubin,Total 0.4 mg/dL (0.2-1.3); Blood Urea Nitrogen 15 mg/dL (7-17); Calcium 7.8 mg/dL (8.4-10.2); Carbon Dioxide 24 mmol/L (22-30); Chloride 105 mmol/L (98-107); Estimated CRCL calculation 38 ml/min; Estimated Glomerular Filt Rate > 60; Glucose 91 mg/dL (65-110); Potassium 3.5 mmol/L (3.4-5.0); Sodium 131 mmol/L (137-145)
[2023-05-03 08:00] VITALS: PULSE 80; RESP 16; O2SAT 94
[2023-05-03] MEDS: CHOLECALCIFEROL 1,000 UNITS TABLET 2000 UNITS PO (08:20)
[2023-05-03] MEDS: ASPIRIN 325 MG ENTERIC TABLET PO ×2 (08:20→20:09)
[2023-05-03] MEDS: MULTIVITAMINS THERAPEUTIC TAB (*BKC) 1 TABLET PO (08:20)
[2023-05-03] MEDS: SENNA/DOCUSATE SODIUM TABLET 2 TAB PO (08:20)
[2023-05-03] MEDS: DONEPEZIL HCL 5 MG TABLET PO (08:20)
--- NOTE | 2023-05-03 10:32 | PM.IMPN ---
Progress Note: A&P Assessment and Plan (1) Intertrochanteric fracture of right femur: Code(s): S72.141A - Displaced intertrochanteric fracture of right femur, initial encounter for closed fracture Status: Acute (2) Closed hip fracture: Qualifiers: Encounter type: initial encounter Laterality: right Qualified Code(s): S72.001A - Fracture of unspecified part of neck of right femur, initial encounter for closed fracture Code(s): S72.009A - Fracture of unspecified part of neck of unspecified femur, initial encounter for closed fracture Status: Acute (3) Dementia: Code(s): F03.90 - Unspecified dementia, unspecified severity, without behavioral disturbance, psychotic disturbance, mood disturbance, and anxiety Status: Acute (4) Hypothyroid: Code(s): E03.9 - Hypothyroidism, unspecified Status: Chronic Plan 82-year-old female with history of dementia is presenting with hip pain and found to have a hip fracture. 1)Right Hip Fracture: Appreciate Ortho help POD#2 ORIF PAin control with tylenol Will back off on narcotics/sedatives as tolerated ASA 325 mg BID for DVT ppx PT/OT 2)Abnormal TSH: High TSH with normal T4 Started on Levothyroxine Will need to have TSH rechecked in 6-8 weeks as outpatient 3)H/o Dementia: C/w Donepezil 4)DVT ppx: ASA as mentioned above 5)Code:Full 6)Dispo:will need rehab Time Spent With Patient Time with patient: 15 - 25 minutes Subjective Date/time seen: 05/03/23 10:32 Interval history: sleepy this morning, unable to have any conversation with patient Review of Systems Review of Systems: ROS unobtainable: Yes unobtainable due to mental status Exam Narrative: General: No acute distress,sleeping HEENT: Atraumatic, normocephalic, mucous membranes moist CV: Regular rate and rhythm, S1, S2 Lungs: Clear to auscultation bilaterally, no rales or crackles noted, no wheezes, good air entry Abdomen: Soft, nontender, nondistended Extremities: Normal to inspection Skin: No rashes noted, no lesions or wounds seen Psych: unable to obtain Objective Data Vital Signs Vital Signs: Vital Signs - 24 hr 05/02/23 14:28 05/02/23 20:39 05/03/23 06:08 Temperature 98.1 F 97.6 F 97.6 F Pulse Rate 91 71 80 Respiratory Rate 16 14 16 Blood Pressure 124/75 119/74 118/57 L Pulse Oximetry 95 98 94 Intake/Output Intake/Output: Intake & Output 04/30/23 05/01/23 05/02/23 05/03/23 23:59 23:59 23:59 23:59 Intake Total 1999 740 1660 300 Output Total 1550 1275 600 650 Balance 450 -535 1060 -350 Meds/Results Medications: Active Medications Generic Name Dose Route Start Last Admin Trade Name Freq PRN Reason Stop Dose Admin Acetaminophen 650 mg 05/01/23 16:20 05/02/23 18:34 Acetaminophen 325 Mg Tablet PO 650 mg Q6H PRN Administration Mild Pain (1-3) or Fever Hydrocodone Bitart/Acetaminophen 2 tab 05/01/23 16:20 05/02/23 12:28 Hydrocodone/Acetaminophen (*Crx) 5-325 Mg Tablet PO 2 tab Q6H PRN Administration Pain Rated 7-10 Aspirin 325 mg 05/01/23 21:00 05/03/23 08:20 Aspirin 325 Mg Enteric Tablet PO 325 mg Q12HR [place] Administration Diazepam 5 mg 05/01/23 16:20 05/02/23 18:34 Diazepam (*Crx) 5 Mg Tablet PO 5 mg Q8H PRN Administration Muscle Spasm Donepezil HCl 5 mg 04/30/23 09:00 05/03/23 08:20 Donepezil Hcl 5 Mg Tablet PO 5 mg DAILY [place] Administration Levothyroxine Sodium 25 mcg 05/02/23 09:20 05/03/23 06:02 Levothyroxine Sodium 25 Mcg Tablet PO 25 mcg DAILY@0630 [place] Administration Lorazepam 0.5 mg 04/29/23 19:49 04/30/23 20:08 Lorazepam Inj (*Crx) 2 Mg/Ml Vial IV PUSH 0.5 mg Q6H PRN Administration Anxiety Multivitamins Therapeutic 1 tablet 04/30/23 09:00 05/03/23 08:20 Multivitamins Therapeutic Tab (*Bkc) PO 1 tablet DAILY [place] Administration Naloxone HCl 0.1 mg 05/01/23 16:20 Naloxone Hcl 0.4 Mg/
--- NOTE | 2023-05-03 12:54 | PM.PNORT ---
Progress Note: A&P Assessment and Plan (1) Intertrochanteric fracture of right femur: Code(s): S72.141A - Displaced intertrochanteric fracture of right femur, initial encounter for closed fracture Status: Acute Assessment and Plan: POD 2 DOING WELL. SHE WILL F/U WITH ORTHO IN 6 WEEKS. PLEASE CALL FOR ANY QUESTIONS. Subjective Subjective Date/Time Seen: 05/03/23 12:54 Interval history: pod 2 DOING WELL. NO CALF PAIN Exam Extrem: Other: VSS AFEBRILE DRESSING DRY [place] INTACT NEG HOMANS SIGN THIGH AND CALF SOFT Objective Data Vital Signs Vital Signs: Vital Signs - 24 hr 05/02/23 14:28 05/02/23 20:39 05/03/23 06:08 Temperature 36.7 C 36.4 C 36.4 C Pulse Rate 91 71 80 Respiratory Rate 16 14 16 Blood Pressure 124/75 119/74 118/57 L Pulse Oximetry 95 98 94 Oxygen Delivery 05/03/23 08:00 Temperature Pulse Rate 80 Respiratory Rate 16 Blood Pressure Pulse Oximetry 94 Oxygen Delivery Room Air Intake/Output Intake/Output: Intake & Output 04/30/23 05/01/23 05/02/23 05/03/23 23:59 23:59 23:59 23:59 Intake Total 1999 740 1660 420 Output Total 1550 1275 600 650 Balance 450 -535 1060 -230 Meds/Results Medications: Active Medications Generic Name Dose Route Start Last Admin Trade Name Freq PRN Reason Stop Dose Admin Acetaminophen 650 mg 05/01/23 16:20 05/02/23 18:34 Acetaminophen 325 Mg Tablet PO 650 mg Q6H PRN Administration Mild Pain (1-3) or Fever Aspirin 325 mg 05/01/23 21:00 05/03/23 08:20 Aspirin 325 Mg Enteric Tablet PO 325 mg Q12HR [place] Administration Diazepam 5 mg 05/01/23 16:20 05/02/23 18:34 Diazepam (*Crx) 5 Mg Tablet PO 5 mg Q8H PRN Administration Muscle Spasm Donepezil HCl 5 mg 04/30/23 09:00 05/03/23 08:20 Donepezil Hcl 5 Mg Tablet PO 5 mg DAILY [place] Administration Levothyroxine Sodium 25 mcg 05/02/23 09:20 05/03/23 06:02 Levothyroxine Sodium 25 Mcg Tablet PO 25 mcg DAILY@0630 [place] Administration Multivitamins Therapeutic 1 tablet 04/30/23 09:00 05/03/23 08:20 Multivitamins Therapeutic Tab (*Bkc) PO 1 tablet DAILY [place] Administration Naloxone HCl 0.1 mg 05/01/23 16:20 Naloxone Hcl 0.4 Mg/Ml Vial IV PUSH Q2M PRN Opiate Reversal Ondansetron HCl 4 mg 05/01/23 16:20 Ondansetron Inj 4 Mg/2 Ml Vial IV PUSH Q4H PRN Nausea And Vomiting Oxycodone HCl 5 mg 04/30/23 08:54 05/02/23 06:55 Oxycodone Hcl (*Crx) 5 Mg Tab Ir PO 5 mg Q4H PRN Administration Pain Rated 7-10 Polyethylene Glycol 17 gm 05/02/23 09:00 05/02/23 08:39 Polyethylene Glycol 3350 17 Gm Powd.Pack PO 17 gm QAM [place] Administration Senna/Docusate Sodium 2 tab 05/01/23 17:00 05/03/23 08:20 Senna/Docusate Sodium Tablet PO 2 tab BID [place] Administration Vitamin D 2,000 units 04/30/23 09:00 05/03/23 08:20 Cholecalciferol 1,000 Units Tablet PO 2,000 units DAILY [place] Administration Radiology Results: ITS Impressions Hip/Pelvis X-Ray 04/29/23 14:54 IMPRESSION: 1. Intertrochanteric fracture of proximal right femur. 2. Mild right hip osteoarthritis. 3. Total left hip arthroplasty in near-anatomic alignment. Chest X-Ray 04/29/23 15:37 IMPRESSION: 1. Interstitial pattern in the lungs, consistent with mild pulmonary edema versus chronic lung disease. Intraoperative X-Ray 05/01/23 14:46 IMPRESSION: 1. Fluoroscopy utilized during internal fixation of a comminuted intratrochanteric fracture of the proximal right femur. See procedure note for further detail. Labs Labs: Laboratory Results - last 24 hr 05/03/23 06:40 WBC 11.1 H RBC 3.44 L Hgb 8.3 L Hct 26.6 L MCV 77.3 L MCH 24.1 L MCHC 31.2 L RDW 16.4 H Plt Count 256 MPV 9.6 Immature Gran % (Auto) 0.6 H Neut % (Auto) 77.1 H Lymph % (Auto) 11.8 L [place] % (Auto) 8.6 H Eos % (Auto) 1.6 Baso % (Auto) 0.3 Lymph # (Auto) 1.31 [place] # (Auto) 1.0 H Eo
[2023-05-03 14:40] VITALS: BP 149/77; PULSE 99; RESP 16; TEMP 36.5; O2SAT 96
[2023-05-03 19:51] VITALS: BP 135/70; PULSE 100; RESP 16; TEMP 36.6; O2SAT 95
[2023-05-03 20:00] VITALS: PULSE 88; RESP 17; O2SAT 95
[2023-05-03] MEDS: oxyCODONE HCL (*CRX) 5 MG TAB IR PO (20:09)
[2023-05-03] MEDS: diazePAM (*CRX) 5 MG TABLET PO (20:09)
[2023-05-04] MEDS: LEVOTHYROXINE SODIUM 25 MCG TABLET PO (05:01)
[2023-05-04 05:13] VITALS: BP 141/60; PULSE 85; RESP 16; TEMP 36.4; O2SAT 96
[2023-05-04 06:33] LABS: Basophils Percent Auto 0.3 % (0.2-1.2); Eosinophils Absolute Auto 0.1 K/mm3 (0-0.3); Eosinophils Percent Auto 0.5 % (0-4.4); Hematocrit 28.1 % (37.0-47.0); Hemoglobin 8.6 g/dL (12.0-15.0); Immature Granulocyte Absolute 0.07 K/mm3 (0.00-0.031); Immature Granulocyte Percent A 0.5 % (0-0.5); Lymphocytes Absolute Auto 1.08 K/mm3 (0.9-3.2); Lymphocytes Percent Auto 8.4 % (18.3-44.2); Mean Corpuscular HGB Conc 30.6 g/dl (32-36); Mean Corpuscular Volume 78.3 fl (80-100); Mean Platelet Volume 9.6 fl (7.4-10.4); Monocytes Percent Auto 7.8 % (2.6-8.5); Neutrophils Absolute Auto 10.7 K/mm3 (1.3-6.7); Neutrophils Percent Auto 82.5 % (45.5-73.1); Platelet Count Result 297 k/mm3 (150-375); Red Blood Count 3.59 M/mm3 (4.2-5.4); Red Cell Distribution Width 16.6 % (11.5-14.5); White Blood Count 12.9 K/mm3 (4.5-10.0)
[2023-05-04 06:45] LABS: Alanine Aminotransferase 17 U/L (6-35); Albumin Level 2.7 g/dL (3.5-5.1); Alkaline Phosphatase 90 U/L (38-126); Anion Gap 5 mmol/L (8-16); Aspartate Amino Transferase 34 U/L (14-36); Bilirubin,Total 0.6 mg/dL (0.2-1.3); Blood Urea Nitrogen 13 mg/dL (7-17); Calcium 7.6 mg/dL (8.4-10.2); Carbon Dioxide 23 mmol/L (22-30); Chloride 102 mmol/L (98-107); Estimated CRCL calculation 52 ml/min; Estimated Glomerular Filt Rate > 60; Glucose 100 mg/dL (65-110); Potassium 3.1 mmol/L (3.4-5.0); Sodium 130 mmol/L (137-145)
[2023-05-04] MEDS: ASPIRIN 325 MG ENTERIC TABLET PO ×2 (10:27→20:20)
[2023-05-04] MEDS: CHOLECALCIFEROL 1,000 UNITS TABLET 2000 UNITS PO (10:27)
[2023-05-04] MEDS: polyethylene glycoL 3350 17 GM POWD.PACK PO (10:27)
[2023-05-04] MEDS: POTASSIUM CHLORIDE 20 MEQ ER TABLET 40 MEQ PO (10:28)
[2023-05-04] MEDS: DONEPEZIL HCL 5 MG TABLET PO (10:28)
[2023-05-04] MEDS: MULTIVITAMINS THERAPEUTIC TAB (*BKC) 1 TABLET PO (10:28)
[2023-05-04] MEDS: SENNA/DOCUSATE SODIUM TABLET 2 TAB PO ×2 (10:28→18:36)
[2023-05-04] MEDS: ACETAMINOPHEN 325 MG TABLET 650 MG PO (10:30)
--- NOTE | 2023-05-04 13:26 | PM.IMPN ---
Progress Note: A&P Assessment and Plan (1) Intertrochanteric fracture of right femur: Code(s): S72.141A - Displaced intertrochanteric fracture of right femur, initial encounter for closed fracture Status: Acute Assessment and Plan: Patient presents with hip pain after a fall and found to have IT proximal right femur fracture. Ortho consulted and underwent surgical repair on 05/01/23. Pain control with Tylenol. ASA 325 mg BID for DVT ppx PT/OT Awaiting placement (2) Anemia: Code(s): D64.9 - Anemia, unspecified Status: Acute Assessment and Plan: Hgb normal last year. Hgb 10.7 on admission probably related to femur fracture. Hgb has drifted down to 8 range and stable. EBL 75mL. Follow. (3) Dementia: Code(s): F03.90 - Unspecified dementia, unspecified severity, without behavioral disturbance, psychotic disturbance, mood disturbance, and anxiety Status: Acute Assessment and Plan: Stable. Continue Donepezil (4) Hypothyroid: Code(s): E03.9 - Hypothyroidism, unspecified Status: Chronic Assessment and Plan: She has listed hypothyroid on her PMH but was not on levothyroxine. High TSH at 6.4 with normal FT4. TSH in the past have been normal. Was started on Levothyroxine but felt not necessary since she has either subclinical hypothyroid or transient elevation of TSH. Will stop levothyroxine and have TSH rechecked in 6-8 weeks as outpatient (5) Hyponatremia: Code(s): E87.1 - Hypo-osmolality and hyponatremia Status: Acute Assessment and Plan: Na low on admission at 133. Na low but stable since admission. 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 Check urine Na. Follow Plan WBC elevated - UA negative. CXR showing ILD vs edema. Follow DVT ppx: ASA, SCDs Code:Full Dispo:will need rehab Subjective Date/time seen: 05/04/23 13:26 Interval history: 82yo female with dementia and hypothyroidism here for hip pain after a fall and found to have femur fracture. Assuming care. Chart reviewed. Patient is alert but confused and unable to provide hx. Rn states no issues overnight. Patient denies hip pain. Review of Systems Review of Systems: ROS unobtainable: Yes unobtainable due to mental status Exam Narrative: AF 97.6 141/60 85 16 96% ra Gen - NARD lying in recumbent chair Chest - CTA bilaterally, nml RR CV - RRR S1/S2 Abd - Soft, NT/ND, Positive BS Back - kyphosis Ext - No pedal edema. right hip dressing is clean/dry/intact Neuro - Alert but confused Psych - pleasant and cooperative Skin - Warm and dry Objective Data Vital Signs Vital Signs: Vital Signs - 24 hr 05/03/23 14:40 05/03/23 19:51 05/03/23 20:00 Temperature 97.7 F 97.8 F Pulse Rate 99 100 88 Respiratory Rate 16 16 17 Blood Pressure 149/77 H 135/70 Pulse Oximetry 96 95 95 Oxygen Delivery Room Air 05/04/23 05:13 Temperature 97.6 F Pulse Rate 85 Respiratory Rate 16 Blood Pressure 141/60 H Pulse Oximetry 96 Oxygen Delivery Intake/Output Intake/Output: Intake & Output 05/01/23 05/02/23 05/03/23 05/04/23 23:59 23:59 23:59 23:59 Intake Total 740 1660 820 520 Output Total 2974 131 5131 200 Balance -535 1060 -605 320 Meds/Results Medications: Active Medications Generic Name Dose Route Start Last Admin Trade Name Freq PRN Reason Stop Dose Admin Acetaminophen 650 mg 05/01/23 16:20 05/04/23 10:30 Acetaminophen 325 Mg Tablet PO 650 mg Q6H PRN Administration Mild Pain (1-3) or Fever Aspirin 325 mg 05/01/23 21:00 05/04/23 10:27 Aspirin 325 Mg Enteric Tablet PO 325 mg Q12HR [place] Administration Diazepam 5 mg 05/01/23 16:20 05/03/23 20:09 Diazepam (*Crx) 5 Mg Tablet PO 5 mg Q8H PRN Administration Muscle Spasm Donepezil HCl 5 mg 04/30/23 09:00 05/04/23 10:28 Donepezil Hcl 5 Mg Tablet PO 5 mg DAILY [place] Administration Levothyroxine Sodium 25 mcg 05/02/23 09:20 05/04/23
[2023-05-04 14:00] VITALS: BP 138/62; PULSE 70; RESP 16; TEMP 36.4; O2SAT 98
[2023-05-04 20:00] VITALS: PULSE 76; RESP 16; O2SAT 98
--- NOTE | 2023-05-04 20:02 | PC.NURSE ---
1400 05/04/23 Pt attempting to get up on her know without help. Pt A&O x1. Educated that she needs to call to get up and she can't walk on her own because she broke her hip. Called Dr. Salvador for further orders. No new orders at the time.
[2023-05-04 20:19] VITALS: BP 129/72; PULSE 84; RESP 16; TEMP 36.5; O2SAT 99
[2023-05-04] MEDS: diazePAM (*CRX) 5 MG TABLET PO (20:20)
[2023-05-04] MEDS: HYDROcodone/acetaminophen (*CRX) 5-325 MG TABLET 1 TAB PO (20:20)
[2023-05-05 05:51] LABS: Basophils Absolute Auto 0.1 K/mm3 (0.0-0.1); Basophils Percent Auto 0.4 % (0.2-1.2); Eosinophils Absolute Auto 0.2 K/mm3 (0-0.3); Eosinophils Percent Auto 1.4 % (0-4.4); Hemoglobin 8.7 g/dL (12.0-15.0); Immature Granulocyte Absolute 0.07 K/mm3 (0.00-0.031); Immature Granulocyte Percent A 0.6 % (0-0.5); Lymphocytes Absolute Auto 0.97 K/mm3 (0.9-3.2); Lymphocytes Percent Auto 8.6 % (18.3-44.2); Mean Corpuscular HGB Conc 31.1 g/dl (32-36); Mean Corpuscular Hemoglobin 24.1 pg (26-34); Mean Corpuscular Volume 77.6 fl (80-100); Mean Platelet Volume 9.4 fl (7.4-10.4); Monocytes Absolute Auto 0.8 K/mm3 (0.1-0.6); Monocytes Percent Auto 7.1 % (2.6-8.5); Neutrophils Absolute Auto 9.3 K/mm3 (1.3-6.7); Neutrophils Percent Auto 81.9 % (45.5-73.1); Platelet Count Result 324 k/mm3 (150-375); Red Blood Count 3.61 M/mm3 (4.2-5.4); Red Cell Distribution Width 16.6 % (11.5-14.5); White Blood Count 11.3 K/mm3 (4.5-10.0)
[2023-05-05 06:12] LABS: Iron 18 ug/dL (37-170)
[2023-05-05 06:16] LABS: Alanine Aminotransferase 19 U/L (6-35); Albumin Level 2.9 g/dL (3.5-5.1); Alkaline Phosphatase 102 U/L (38-126); Anion Gap 6 mmol/L (8-16); Aspartate Amino Transferase 36 U/L (14-36); Bilirubin,Total 0.7 mg/dL (0.2-1.3); Blood Urea Nitrogen 12 mg/dL (7-17); Calcium 7.9 mg/dL (8.4-10.2); Carbon Dioxide 25 mmol/L (22-30); Chloride 103 mmol/L (98-107); Estimated CRCL calculation 44 ml/min; Estimated Glomerular Filt Rate > 60; Glucose 99 mg/dL (65-110); Magnesium 1.9 mg/dL (1.6-2.3); Potassium 3.7 mmol/L (3.4-5.0); Sodium 134 mmol/L (137-145)
[2023-05-05 06:22] LABS: Percent Iron Saturation 6 % (20-50)
[2023-05-05 06:36] VITALS: BP 141/77; PULSE 100; RESP 16; TEMP 36.6; O2SAT 98
[2023-05-05] MEDS: HYDROcodone/acetaminophen (*CRX) 5-325 MG TABLET 1 TAB PO ×2 (06:37→20:24)
[2023-05-05 07:33] LABS: Folic Acid > 20.0 ng/mL (2.76->20)
[2023-05-05] MEDS: polyethylene glycoL 3350 17 GM POWD.PACK PO (08:58)
[2023-05-05] MEDS: CHOLECALCIFEROL 1,000 UNITS TABLET 2000 UNITS PO (08:58)
[2023-05-05] MEDS: MULTIVITAMINS THERAPEUTIC TAB (*BKC) 1 TABLET PO (08:58)
[2023-05-05] MEDS: DONEPEZIL HCL 5 MG TABLET PO (08:58)
[2023-05-05] MEDS: ASPIRIN 325 MG ENTERIC TABLET PO ×2 (08:58→20:24)
[2023-05-05] MEDS: SENNA/DOCUSATE SODIUM TABLET 2 TAB PO ×2 (08:59→17:09)
--- NOTE | 2023-05-05 13:10 | PM.IMPN ---
Progress Note: A&P Assessment and Plan (1) Intertrochanteric fracture of right femur: Code(s): S72.141A - Displaced intertrochanteric fracture of right femur, initial encounter for closed fracture Status: Acute Assessment and Plan: Patient presents with hip pain after a fall and found to have IT proximal right femur fracture. Ortho consulted and underwent surgical repair on 05/01/23. Pain control with Tylenol. ASA 325 mg BID for DVT ppx PT/OT Awaiting placement (2) Anemia: Code(s): D64.9 - Anemia, unspecified Status: Acute Assessment and Plan: Hgb normal last year. Hgb 10.7 on admission probably related to femur fracture. Hgb has drifted down to 8 range and stable. EBL 75mL. Follow. (3) Dementia: Code(s): F03.90 - Unspecified dementia, unspecified severity, without behavioral disturbance, psychotic disturbance, mood disturbance, and anxiety Status: Acute Assessment and Plan: Stable. Continue Donepezil (4) Hypothyroid: Code(s): E03.9 - Hypothyroidism, unspecified Status: Chronic Assessment and Plan: She has listed hypothyroid on her PMH but was not on levothyroxine. High TSH at 6.4 with normal FT4. TSH in the past have been normal. Was started on Levothyroxine but felt not necessary since she has either subclinical hypothyroid or transient elevation of TSH. Will stop levothyroxine and have TSH rechecked in 6-8 weeks as outpatient (5) Hyponatremia: Code(s): E87.1 - Hypo-osmolality and hyponatremia Status: Acute Assessment and Plan: Na low on admission at 133. Na low but stable since admission. 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 Check urine Na. Follow Plan WBC elevated - UA negative. CXR showing ILD vs edema. Follow DVT ppx: ASA, SCDs Code:Full Dispo:will need rehab Subjective Date/time seen: 05/05/23 13:10 Interval history: No complaints Exam Narrative: AF 97.6 141/60 85 16 96% ra Gen - NARD lying in recumbent chair Chest - CTA bilaterally, nml RR CV - RRR S1/S2 Abd - Soft, NT/ND, Positive BS Back - kyphosis Ext - No pedal edema. right hip dressing is clean/dry/intact Neuro - Alert but confused Psych - pleasant and cooperative Skin - Warm and dry Objective Data Vital Signs Vital Signs: Vital Signs - 24 hr 05/04/23 14:00 05/04/23 20:19 05/04/23 20:00 Temperature 97.6 F 97.7 F Pulse Rate 70 84 76 Respiratory Rate 16 16 16 Blood Pressure 138/62 129/72 Pulse Oximetry 98 99 98 Oxygen Delivery Room Air 05/05/23 06:36 05/05/23 09:00 Temperature 97.8 F Pulse Rate 100 Respiratory Rate 16 Blood Pressure 141/77 H Pulse Oximetry 98 Oxygen Delivery Room Air Intake/Output Intake/Output: Intake & Output 05/02/23 05/03/23 05/04/23 05/05/23 23:59 23:59 23:59 23:59 Intake Total 2851 179 7926 450 Output Total 600 1425 200 Balance 1060 -605 1320 450 Meds/Results Medications: Active Medications Generic Name Dose Route Start Last Admin Trade Name Freq PRN Reason Stop Dose Admin Acetaminophen 650 mg 05/04/23 13:48 Acetaminophen 325 Mg Tablet PO Q6H PRN Mild Pain (1-5) Or Fever Hydrocodone Bitart/Acetaminophen 1 tab 05/04/23 13:41 05/05/23 06:37 Hydrocodone/Acetaminophen (*Crx) 5-325 Mg Tablet PO 1 tab Q6H PRN Administration Pain Rated 6 or Greater Aspirin 325 mg 05/01/23 21:00 05/05/23 08:58 Aspirin 325 Mg Enteric Tablet PO 325 mg Q12HR [place] Administration Diazepam 5 mg 05/01/23 16:20 05/04/23 20:20 Diazepam (*Crx) 5 Mg Tablet PO 5 mg Q8H PRN Administration Muscle Spasm Donepezil HCl 5 mg 04/30/23 09:00 05/05/23 08:58 Donepezil Hcl 5 Mg Tablet PO 5 mg DAILY [place] Administration Multivitamins Therapeutic 1 tablet 04/30/23 09:00 05/05/23 08:58 Multivitamins Therapeutic Tab (*Bkc) PO 1 tablet DAILY [place] Administration Naloxone HCl 0.1 mg 05/01/23 16:20 Naloxone Hcl 0.4 Mg/M
[2023-05-05 14:00] VITALS: BP 138/68; PULSE 90; RESP 16; TEMP 36.4; O2SAT 98
[2023-05-05 17:17] LABS: Creatinine Urine 83.9 mg/dL
[2023-05-05 17:36] LABS: Sodium Urine Random 22 meq/L
[2023-05-05 20:00] VITALS: PULSE 90; RESP 16; O2SAT 98
[2023-05-05] MEDS: diazePAM (*CRX) 5 MG TABLET PO (20:24)
[2023-05-05 22:00] VITALS: BP 150/74; PULSE 101; RESP 18; TEMP 36.4; O2SAT 96
[2023-05-06 05:43] LABS: Basophils Absolute Auto 0.1 K/mm3 (0.0-0.1); Basophils Percent Auto 0.5 % (0.2-1.2); Eosinophils Absolute Auto 0.3 K/mm3 (0-0.3); Eosinophils Percent Auto 2.5 % (0-4.4); Hematocrit 28.9 % (37.0-47.0); Hemoglobin 8.9 g/dL (12.0-15.0); Immature Granulocyte Absolute 0.07 K/mm3 (0.00-0.031); Immature Granulocyte Percent A 0.6 % (0-0.5); Lymphocytes Absolute Auto 1.47 K/mm3 (0.9-3.2); Lymphocytes Percent Auto 12.9 % (18.3-44.2); Mean Corpuscular HGB Conc 30.8 g/dl (32-36); Mean Corpuscular Hemoglobin 24.5 pg (26-34); Mean Corpuscular Volume 79.6 fl (80-100); Mean Platelet Volume 9.4 fl (7.4-10.4); Monocytes Absolute Auto 0.8 K/mm3 (0.1-0.6); Monocytes Percent Auto 6.9 % (2.6-8.5); Neutrophils Absolute Auto 8.7 K/mm3 (1.3-6.7); Neutrophils Percent Auto 76.6 % (45.5-73.1); Platelet Count Result 364 k/mm3 (150-375); Red Blood Count 3.63 M/mm3 (4.2-5.4); White Blood Count 11.4 K/mm3 (4.5-10.0)
[2023-05-06 05:57] LABS: Alanine Aminotransferase 19 U/L (6-35); Alkaline Phosphatase 112 U/L (38-126); Anion Gap 3 mmol/L (8-16); Aspartate Amino Transferase 34 U/L (14-36); Bilirubin,Total 0.7 mg/dL (0.2-1.3); Blood Urea Nitrogen 12 mg/dL (7-17); Calcium 8.2 mg/dL (8.4-10.2); Carbon Dioxide 31 mmol/L (22-30); Chloride 102 mmol/L (98-107); Estimated CRCL calculation 44 ml/min; Estimated Glomerular Filt Rate > 60; Glucose 97 mg/dL (65-110); Sodium 136 mmol/L (137-145)
[2023-05-06 06:00] VITALS: BP 148/54; PULSE 86; RESP 18; TEMP 37; O2SAT 96
--- NOTE | 2023-05-06 08:33 | PCPTNOTE ---
Attempted to see patient for PT, however patient was working with OT.
[2023-05-06] MEDS: CHOLECALCIFEROL 1,000 UNITS TABLET 2000 UNITS PO (09:03)
[2023-05-06] MEDS: HYDROcodone/acetaminophen (*CRX) 5-325 MG TABLET 1 TAB PO (09:04)
[2023-05-06] MEDS: MULTIVITAMINS THERAPEUTIC TAB (*BKC) 1 TABLET PO (09:05)
[2023-05-06] MEDS: ASPIRIN 325 MG ENTERIC TABLET PO (09:05)
[2023-05-06] MEDS: DONEPEZIL HCL 5 MG TABLET PO (09:05)
--- NOTE | 2023-05-06 11:11 | PM.IMPN ---
Progress Note: A&P Assessment and Plan (1) Intertrochanteric fracture of right femur: Code(s): S72.141A - Displaced intertrochanteric fracture of right femur, initial encounter for closed fracture Status: Acute Assessment and Plan: Patient presents with hip pain after a fall and found to have IT proximal right femur fracture. Ortho consulted and underwent surgical repair on 05/01/23. Pain control with Tylenol. ASA 325 mg BID for DVT ppx PT/OT Awaiting placement (2) Anemia: Code(s): D64.9 - Anemia, unspecified Status: Acute Assessment and Plan: Hgb normal last year. Hgb 10.7 on admission probably related to femur fracture. Hgb has drifted down to 8 range and stable. EBL 75mL. Follow. (3) Dementia: Code(s): F03.90 - Unspecified dementia, unspecified severity, without behavioral disturbance, psychotic disturbance, mood disturbance, and anxiety Status: Acute Assessment and Plan: Stable. Continue Donepezil (4) Hypothyroid: Code(s): E03.9 - Hypothyroidism, unspecified Status: Chronic Assessment and Plan: She has listed hypothyroid on her PMH but was not on levothyroxine. High TSH at 6.4 with normal FT4. TSH in the past have been normal. Was started on Levothyroxine but felt not necessary since she has either subclinical hypothyroid or transient elevation of TSH. Will stop levothyroxine and have TSH rechecked in 6-8 weeks as outpatient (5) Hyponatremia: Code(s): E87.1 - Hypo-osmolality and hyponatremia Status: Acute Assessment and Plan: Na low on admission at 133. Na low but stable since admission. 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 Check urine Na. Follow Plan WBC elevated - UA negative. CXR showing ILD vs edema. Follow DVT ppx: ASA, SCDs Code:Full Dispo:will need rehab Subjective Date/time seen: 05/06/23 11:11 Interval history: No new issues Exam Narrative: AF 97.6 141/60 85 16 96% ra Gen - NARD lying in recumbent chair Chest - CTA bilaterally, nml RR CV - RRR S1/S2 Abd - Soft, NT/ND, Positive BS Back - kyphosis Ext - No pedal edema. right hip dressing is clean/dry/intact Neuro - Alert but confused Psych - pleasant and cooperative Skin - Warm and dry Objective Data Vital Signs Vital Signs: Vital Signs - 24 hr 05/05/23 14:00 05/05/23 22:00 05/05/23 20:00 Temperature 97.6 F 97.5 F L Pulse Rate 90 101 H 90 Respiratory Rate 16 18 16 Blood Pressure 138/68 150/74 H Pulse Oximetry 98 96 98 Oxygen Delivery Room Air 05/06/23 06:00 Temperature 98.6 F Pulse Rate 86 Respiratory Rate 18 Blood Pressure 148/54 H Pulse Oximetry 96 Oxygen Delivery Intake/Output Intake/Output: Intake & Output 05/03/23 05/04/23 05/05/23 05/06/23 23:59 23:59 23:59 23:59 Intake Total 820 1520 990 620 Output Total 1425 200 150 Balance -605 1320 840 620 Meds/Results Medications: Active Medications Generic Name Dose Route Start Last Admin Trade Name Freq PRN Reason Stop Dose Admin Acetaminophen 650 mg 05/04/23 13:48 Acetaminophen 325 Mg Tablet PO Q6H PRN Mild Pain (1-5) Or Fever Hydrocodone Bitart/Acetaminophen 1 tab 05/04/23 13:41 05/06/23 09:04 Hydrocodone/Acetaminophen (*Crx) 5-325 Mg Tablet PO 1 tab Q6H PRN Administration Pain Rated 6 or Greater Aspirin 325 mg 05/01/23 21:00 05/06/23 09:05 Aspirin 325 Mg Enteric Tablet PO 325 mg Q12HR [place] Administration Diazepam 5 mg 05/01/23 16:20 05/05/23 20:24 Diazepam (*Crx) 5 Mg Tablet PO 5 mg Q8H PRN Administration Muscle Spasm Donepezil HCl 5 mg 04/30/23 09:00 05/06/23 09:05 Donepezil Hcl 5 Mg Tablet PO 5 mg DAILY [place] Administration Multivitamins Therapeutic 1 tablet 04/30/23 09:00 05/06/23 09:05 Multivitamins Therapeutic Tab (*Bkc) PO 1 tablet DAILY [place] Administration Naloxone HCl 0.1 mg 05/01/23 16:20 Naloxone Hcl 0.4 Mg/Ml Vial IV PUSH Q2M P
[2023-05-06 14:48] VITALS: BP 112/69; PULSE 93; RESP 18; TEMP 35.9; O2SAT 100
--- NOTE | 2023-05-06 14:59 | PM.DS ---
DS: Admitting Diagnosis Discharge Date 05/06/23 Admitting Diagnosis fall DS: Discharge Diagnosis Discharge Diagnosis (1) Intertrochanteric fracture of right femur: Code(s): S72.141A - Displaced intertrochanteric fracture of right femur, initial encounter for closed fracture Status: Acute Assessment and Plan: Patient presents with hip pain after a fall and found to have IT proximal right femur fracture. Ortho consulted and underwent surgical repair on 05/01/23. Pain control with Tylenol. ASA 325 mg BID for DVT ppx PT/OT Awaiting placement (2) Anemia: Code(s): D64.9 - Anemia, unspecified Status: Acute Assessment and Plan: Hgb normal last year. Hgb 10.7 on admission probably related to femur fracture. Hgb has drifted down to 8 range and stable. EBL 75mL. Follow. (3) Dementia: Code(s): F03.90 - Unspecified dementia, unspecified severity, without behavioral disturbance, psychotic disturbance, mood disturbance, and anxiety Status: Acute Assessment and Plan: Stable. Continue Donepezil (4) Hypothyroid: Code(s): E03.9 - Hypothyroidism, unspecified Status: Chronic Assessment and Plan: She has listed hypothyroid on her PMH but was not on levothyroxine. High TSH at 6.4 with normal FT4. TSH in the past have been normal. Was started on Levothyroxine but felt not necessary since she has either subclinical hypothyroid or transient elevation of TSH. Will stop levothyroxine and have TSH rechecked in 6-8 weeks as outpatient (5) Hyponatremia: Code(s): E87.1 - Hypo-osmolality and hyponatremia Status: Acute Assessment and Plan: Na low on admission at 133. Na low but stable since admission. 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 Check urine Na. Follow Plan WBC elevated - UA negative. CXR showing ILD vs edema. Follow DVT ppx: ASA, SCDs Code:Full Dispo:will need rehab DS: Summary Hospital Course Hospital Course: Admitted for fall and hip fracture, sp reapir by surgery. Doing well. Will be dc to snf. Time Spent with Patient Time attestation: Total time spent providing and/or coordinating discharge services: Exam Narrative: AF 97.6 141/60 85 16 96% ra Gen - NARD lying in recumbent chair Chest - CTA bilaterally, nml RR CV - RRR S1/S2 Abd - Soft, NT/ND, Positive BS Back - kyphosis Ext - No pedal edema. right hip dressing is clean/dry/intact Neuro - Alert but confused Psych - pleasant and cooperative Skin - Warm and dry DS: Data Data Completed and Pending Labs on day of discharge: Labs from last 24 hours 05/06/23 05/05/23 05:08 17:04 WBC 11.4 H RBC 3.63 L Hgb 8.9 L Hct 28.9 L MCV 79.6 L MCH 24.5 L MCHC 30.8 L RDW 17.0 H Plt Count 364 MPV 9.4 Immature Gran % (Auto) 0.6 H Neut % (Auto) 76.6 H Lymph % (Auto) 12.9 L [place] % (Auto) 6.9 Eos % (Auto) 2.5 Baso % (Auto) 0.5 Lymph # (Auto) 1.47 [place] # (Auto) 0.8 H Eos # (Auto) 0.3 Baso # (Auto) 0.1 Abs Immat Gran (auto) 0.07 H Absolute Neuts (auto) 8.7 H Absolute Nucleated RBC 0.0 Nucleated RBC % 0.0 Sodium 136 L Potassium 4.0 Chloride 102 Carbon Dioxide 31 H Anion Gap 3 L BUN 12 Creatinine 0.60 L Estim Creat Clear Calc 44 Estimated GFR > 60 Glucose 97 Calcium 8.2 L Total Bilirubin 0.7 AST 34 ALT 19 Alkaline Phosphatase 112 Total Protein 7.0 Albumin 3.0 L Ur Random Sodium 22 Urine Creatinine 83.9 Discharge Plan Discharge Attending physician on discharge: Emigdio Harvey Consulting providers: Praveen Acosta Discharging Clinician: Emigdio Harvey Patient Disposition: SNF Activity: may shower, no driving, follow weight bearing status and other - see discharge instructions Diet: as tolerated Discharge Instructions: Postoperative Hip Fracture Instructions Dr. Praveen Acosta [phone] Dressing to be changed daily with an mireya
[2023-05-06 16:03] LABS: EDCOVIDSCREEN Negative (Negative)
== END 2023-05-06 16:45 | DRG 481 ==
LOC: ANHED 16:27 → ANH3MEDSUR 17:57 → ANH2MED 19:53
PROVIDERS: Internal Medicine; Nurse Practitioner; Orthopaedic Surgery; Student in an Organized Health Care Education/Training Program; Admitting Provider Chiropractor; Emergency Provider Emergency Medicine; PCP Family Medicine; Visit Provider Chiropractor
PROC: 0QS634Z Reposition Right Upper Femur with Internal Fixation Device, Percutaneous Approach (ICD-10-PCS; CPT 27245; principal; 2023-05-01 13:30)
DX: S72.141A Displaced intertrochanteric fracture of right femur, initial encounter for closed fracture (principal); E87.1 Hypo-osmolality and hyponatremia; F03.90 Unspecified dementia, unspecified severity, without behavioral disturbance, psychotic disturbance, mood disturbance, and anxiety; E03.9 Hypothyroidism, unspecified; M85.80 Other specified disorders of bone density and structure, unspecified site; W19.XXXA Unspecified fall, initial encounter; D64.89 Other specified anemias; Z96.642 Presence of left artificial hip joint; Z96.611 Presence of right artificial shoulder joint; Z87.891 Personal history of nicotine dependence; Z85.89 Personal history of malignant neoplasm of other organs and systems; Z20.822 Contact with and (suspected) exposure to COVID-19
CPT/HCPCS: 36415; 71045; 73521; 80053; 81001; 82570; 82607; 82728; 82746; 83540; 83550; 83735; 84300; 84439; 84443; 84480; 85025; 85610; 85730; 86850; 86900; 86901; 87426; 93005; 96374; 97110; 97161; 97165; 97530; 97535; 99199; 99285; A9270; C1713; C9803; J0690; J1100; J2060; J2270; J2405; J2704; J3010; J7030; J7120

== ENCOUNTER 2023-09-01 04:15 | Emergency (ER) | payer MEDICARE, OTHER, SELFPAY ==
--- NOTE | ~2023-09-01 | CT_ITS ---
EXAMINATION: CT pelvis wo con DATE: 09/01/2023 05:09 INDICATION: Right lower limb pain post recent internal fixation of a right femoral neck fracture. TECHNIQUE: High resolution computed tomography (CT) of the pelvis was performed without intravenous c ontrast. Additional sagittal and coronal reconstructions were performed. Automated exposure control a nd iterative reconstruction technique were employed. The dose-length product was 245.66 mGy-cm. COMPARISON: Pelvis radiograph dated 06/13/2023 FINDINGS: No interval change in appearance of antegrade intramedullary flo with femoral neck dynamic compressio n screw and distal interlocking screw fixation of a comminuted intratrochanteric fracture of the prox imal right femur. There is unchanged 3 cm proximal and 1 cm lateral displacement and mild valgus angu lation of the internally fixed fracture. Which appears to be healing. With some callus formation deve loping between the inferior margins of the fracture. There is unchanged proximal medial distraction o f a small lesser trochanteric fragment which is positioned anterior to the midpoint of the femoral he ad. No lucency surrounding the fixation instrumentation to suggest loosening or infection. Minimally displaced relatively acute appearing fracture across the right inferior pubic ramus. A typi shekhar second fracture of the right pelvic ring is not identified. There is a nondisplaced fracture of t he left pubic body with mild buckling of the cortex along its cephalad margin. Also unchanged is a noncemented left total hip arthroplasty which is in near-anatomic alignment. Pediatric[facility] Hospitalist lora L5 compression fracture without interval change since lumbar spine radiographs dated 05/19/2015. T here is severe bilateral facet osteoarthritis at L4-L5 and L5-S1. Mild osteoarthritis at the bilatera l sacroiliac joints. Osteitis pubis. Unchanged metallic density, potentially within or along side the colon in the right hemipelvis. Visua lized bowels are otherwise unremarkable. Bladder is distended. Uterus, adnexa and visualized caudal a spect of the liver and kidney are normal. Tiny calcific density in the dependent gallbladder, potenti ally cholelithiasis. No free intraperitoneal gas or fluid within the pelvis or visualized lower abdom en. No pathologically enlarged pelvic or inguinal lymphadenopathy. IMPRESSION: 1. Minimally displaced relatively acute appearing fracture at the right inferior pubic ramus and nond isplaced fracture of the left pubic body. A typically associated second fracture of the right pubic r ing is unable to be identified. 2. Healing relatively recent internal fixation of a comminuted intratrochanteric fracture of the prox imal right femur in unchanged alignment. 3. Unchanged left total hip arthroplasty. Reviewed, dictated and finalized at location A. [facility] IMPRESSION: 1. Minimally displaced relatively acute appearing fracture at the right inferio r pubic ramus and nondisplaced fracture of the left pubic body. A typically ass ociated second fracture of the right pubic ring is unable to be identified. 2. Healing relatively recent internal fixation of a comminuted intratrochanteri c fracture of the proximal right femur in unchanged alignment. 3. Unchanged left total hip arthroplasty.
[2023-09-01 04:17] VITALS: BP 121/75; PULSE 76; RESP 15; TEMP 36.6; O2SAT 96
--- NOTE | 2023-09-01 04:56 | ED.GENADULT ---
HPI - General Adult General Chief complaint: Extremity Injury, Lower Stated complaint: RLE PAIN Time Seen by Provider: 09/01/23 04:26 History of Present Illness HPI narrative: Patient is a 82-year-old female presents to emergency department with chief complaint of possible right femoral neck fracture and possible pelvic fracture. Patient had a recent ORIF of the right femoral neck the staff does not believe there has been any new trauma but the patient had not been able to put weight on her right lower extremity they had x-rays done at the facility and sent the patient to the Emergency department for further evaluation. the patient currently has no complaints and wants to go back to the facility where she is at Related Data Home Medications Medication Instructions Recorded Confirmed multivitamin 1 tablet PO DAILY 08/31/19 07/03/23 Allergies Allergy/AdvReac Type Severity Reaction Status Date / Time No Known Allergies Allergy Verified 06/13/23 11:19 Review of Systems Review of Systems: A 10 system review of systems was completed on the patient and is negative except for what is stated in the HPI. Nursing and ancillary documentation was reviewed. [facility] Past Medical History Medical History Aftercare following right shoulder joint replacement surgery Carcinoma of right submandibular gland (~2020) Dementia Hypothyroid Memory loss Osteopenia Vitamin D deficiency Wears hearing aid in both ears Surgical History Surgical History H/O shoulder surgery History of left hip replacement Dr. Nichols 2016 History of mandibular surgery Family History Family History Mother Dementia Social History Social History Social History: Tim Barajas (patient's son) is POA. She lives alone but lives very close to Tim Barajas. She solis has 2 sons. She is a former smoker. Code status full code Smoking packs per day: 1 Smoking cigarettes per day: 20.0 Years smoked: 40 Smoking pack-years: 40.00 Smoking status: Former smoker Tobacco type: cigarettes Second hand tobacco smoke exposure: No Smoking end date: 09/30/07 Alcohol intake: former Substance use: never Substance use type: does not use Lack of Transportation: No Lack of Food: Never True Current Housing: I Have Housing Concerned About Future Housing: No Difficulty Paying Gas/Electric Bills: No Difficulty Paying for Meds: No Currently Unemployed: No Education: Master's Degree or Higher Difficulty w/ Childcare or Family Care: No Living arrangements: alone Occupation/Education: retired Additional occupation/education comments: 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 [employer] Gender identity (if verbalized by the patient): Female Spiritual care concerns: No Course Vital Signs Vital signs: Vital Signs Temperature 36.6 C 09/01/23 04:17 Pulse Rate 76 09/01/23 04:17 Respiratory Rate 15 09/01/23 04:17 Blood Pressure 121/75 09/01/23 04:17 Pulse Oximetry 96 09/01/23 04:17 Oxygen Delivery Room Air 09/01/23 04:17 Temperature 36.6 C 09/01/23 04:17 Pulse Rate 81 09/01/23 05:57 Respiratory Rate 13 09/01/23 05:57 Blood Pressure 116/72 09/01/23 05:57 Pulse Oximetry 97 09/01/23 05:57 Oxygen Delivery Room Air 09/01/23 04:17 Medical Decision Making Vital Signs Vital Signs: Vital Signs Temperature 36.6 C 09/01/23 04:17 Pulse Rate 76 09/01/23 04:17 Respiratory Rate 15 09/01/23 04:17 Blood Pressure 121/75 09/01/23 04:17 Pulse Oximetry 96 09/01/23 04:17 Oxygen Delivery Room Air 09/01/23 04:17 Temperature 36.6 C 09/01/23 04:17 Pulse Rate 81 09/01/23 05:57 Respiratory Rate 13 09/01/23 05:57 Blood Pressure 116/72
[2023-09-01 05:57] VITALS: BP 116/72; PULSE 81; RESP 13; O2SAT 97
--- NOTE | 2023-09-01 07:18 | PC.NURSE ---
Report given to [facility]. [facility] made aware of patient being discharged home.
[2023-09-01 08:05] VITALS: BP 121/73; PULSE 74; RESP 18; O2SAT 97
[2023-09-01 08:36] VITALS: BP 129/74; PULSE 72; RESP 16; O2SAT 96
== END 2023-09-01 09:06 ==
PROVIDERS: Emergency Provider Emergency Medicine; PCP Family Medicine
DX: S72.001D Fracture of unspecified part of neck of right femur, subsequent encounter for closed fracture with routine healing (principal); F03.90 Unspecified dementia, unspecified severity, without behavioral disturbance, psychotic disturbance, mood disturbance, and anxiety; E03.9 Hypothyroidism, unspecified; E55.9 Vitamin D deficiency, unspecified; M85.80 Other specified disorders of bone density and structure, unspecified site; Z96.611 Presence of right artificial shoulder joint; Z96.642 Presence of left artificial hip joint; Z87.891 Personal history of nicotine dependence; X58.XXXD Exposure to other specified factors, subsequent encounter
CPT/HCPCS: 72192; 99284